=== PATIENT | female | born 1950 | race African-American/Black ===

== ENCOUNTER 2016-12-12 11:35 | Emergency (ER) | payer OTHER ==
[~2016-12-12] VITALS: Ht 165.1 cm; Wt 84.1 kg
[~2016-12-12 11:35] MED LIST: AMLO-512 PO; CARI350 PO; GABA-531 PO; METO50 PO; TRAM50TA4 PO
[2016-12-12] MEDS ORDERED: ASPI81 PO (12:10)
[2016-12-12] MEDS ORDERED: ATOR10TA84 PO (12:10)
[2016-12-12] MEDS ORDERED: OxyCODONE HCL/ACETAMINOPHEN 5-325 MG TABLET PO ONE (14:15)
[2016-12-12 14:34] VITALS: BP 112/65
== END 2016-12-12 14:47 | disposition home or self-care (01) ==
LOC: EMS 11:36
DX: S90.32XA Contusion of left foot, initial encounter (principal); J45.909 Unspecified asthma, uncomplicated; E78.00 Pure hypercholesterolemia, unspecified; I10 Essential (primary) hypertension; Z79.82 Long term (current) use of aspirin; Z88.0 Allergy status to penicillin; Z88.6 Allergy status to analgesic agent; W01.0XXA Fall on same level from slipping, tripping and stumbling without subsequent striking against object, initial encounter; Y93.89 Activity, other specified; Y92.89 Other specified places as the place of occurrence of the external cause; Y99.8 Other external cause status
CPT/HCPCS: 99284

== ENCOUNTER 2017-05-28 13:36 | Emergency (ER) | payer MEDICARE, OTHER ==
[~2017-05-28] VITALS: Ht 165.1 cm; Wt 83.5 kg
[~2017-05-28 13:36] MED LIST changes: +ASPI81 PO; +ATOR10TA84 PO; -CARI350 PO; -GABA-531 PO
[2017-05-28 15:43] VITALS: BP 128/74
[2017-05-28] MEDS ORDERED: IBUPROFEN 600 MG TABLET PO ONE (15:45)
[2017-05-28] MEDS ORDERED: TraMADol HCL 50 MG TABLET PO ONE (15:45)
[2017-05-28] MEDS ORDERED: PERTUSS(ACELL),DIPH,TET VAC/PF 0.5 ML VIAL IM ONE (15:45)
== END 2017-05-28 16:16 | disposition home or self-care (01) ==
LOC: EMS 13:37
DX: S81.011A Laceration without foreign body, right knee, initial encounter (principal); J45.909 Unspecified asthma, uncomplicated; E78.00 Pure hypercholesterolemia, unspecified; I10 Essential (primary) hypertension; Z88.0 Allergy status to penicillin; Z88.6 Allergy status to analgesic agent; W01.0XXA Fall on same level from slipping, tripping and stumbling without subsequent striking against object, initial encounter; Y93.89 Activity, other specified; Y92.89 Other specified places as the place of occurrence of the external cause; Y99.8 Other external cause status
CPT/HCPCS: 29530; 90471; 90715; 99284

== ENCOUNTER 2022-09-21 11:59 | Emergency (ER) | payer MEDICARE, OTHER ==
[~2022-09-21] VITALS: Ht 165.1 cm; Wt 72.7 kg
[~2022-09-21 11:59] MED LIST changes: +AMLO-258 PO; -AMLO-512 PO; +ASPI-1450 PO; -ASPI81 PO; +ATOR10TA PO; -ATOR10TA84 PO; +TRAM-559 PO; -TRAM50TA4 PO
[2022-09-21] MEDS ORDERED: ALBU8HFA IH (12:09)
[2022-09-21] MEDS ORDERED: METO-391 PO (12:09)
[2022-09-21] MEDS ORDERED: TraMADol HCL 50 MG TABLET PO ONE (12:45)
[2022-09-21] MEDS ORDERED: GABA-1181 PO (14:56)
[2022-09-21 15:14] VITALS: BP 127/72
== END 2022-09-21 15:14 | disposition home or self-care (01) ==
LOC: EMS 12:11
DX: M25.561 Pain in right knee (principal); J45.909 Unspecified asthma, uncomplicated; E78.00 Pure hypercholesterolemia, unspecified; I10 Essential (primary) hypertension; M40.50 Lordosis, unspecified, site unspecified; Z88.0 Allergy status to penicillin; Z98.51 Tubal ligation status; Z88.6 Allergy status to analgesic agent
CPT/HCPCS: 99283

== ENCOUNTER 2024-06-14 11:04 | Emergency (ER) | payer MEDICARE, OTHER ==
[~2024-06-14] VITALS: Ht 165.1 cm; Wt 82.7 kg
[~2024-06-14 11:04] MED LIST changes: +ALBU18HF12 IH; +GABA-1181 PO; +METO-391 PO; -METO50 PO; -TRAM-559 PO; +TRAM50TA5 PO
[2024-06-14] MEDS ORDERED: ATOR10TA69 PO ×2 (11:07→12:15)
[2024-06-14] MEDS ORDERED: LISI5TAB21 PO ×2 (11:07→12:15)
[2024-06-14] MEDS ORDERED: AMLO10TA55 PO ×2 (11:07→12:15)
[2024-06-14 11:08] VITALS: BP 102/60; PULSE 95; RESP 16; TEMP 98.4; O2SAT 98
[2024-06-14] MEDS ORDERED: METO-391 PO (12:15)
== END 2024-06-14 12:22 | disposition home or self-care (01) ==
LOC: EMS 11:04
DX: I10 Essential (primary) hypertension (principal); E78.00 Pure hypercholesterolemia, unspecified; J45.909 Unspecified asthma, uncomplicated; Z98.51 Tubal ligation status; Z88.0 Allergy status to penicillin
CPT/HCPCS: 99283; Z7502

== ENCOUNTER → 2024-08-20 | Emergency (ER) | payer MEDICARE, OTHER ==
[~2024-08-20] VITALS: Ht 165.1 cm; Wt 72.0 kg
[~2024-08-20] MED LIST changes: -AMLO-258 PO; +AMLO10TA55 PO; -ATOR10TA PO; +ATOR10TA69 PO; -GABA-1181 PO; +LISI5TAB21 PO
[2024-08-20 11:18] VITALS: BP 147/68; PULSE 82; RESP 18; TEMP 98.9; O2SAT 97
[2024-08-20] MEDS: TraMADol HCL 50 MG TABLET PO ONE (12:21)
== END | disposition still patient (30) ==
LOC: EMS 11:12
DX: J06.9 Acute upper respiratory infection, unspecified (principal); J45.909 Unspecified asthma, uncomplicated; E78.00 Pure hypercholesterolemia, unspecified; I10 Essential (primary) hypertension; G89.29 Other chronic pain; Z98.51 Tubal ligation status; Z88.6 Allergy status to analgesic agent; Z88.0 Allergy status to penicillin; Z79.82 Long term (current) use of aspirin
CPT/HCPCS: 99283

== ENCOUNTER 2024-09-20 14:58 | Inpatient (IN) | payer MEDICARE, OTHER ==
[~2024-09-20] VITALS: Ht 162.6 cm; Wt 88.2 kg
[2024-09-20] MEDS ORDERED: 0.9% SODIUM CHLORIDE 10 ML SYRINGE IVP PRN (15:15)
[2024-09-20] MEDS: SODIUM CHLORIDE 0.9% 2,100 ML IV ONE (15:33)
[2024-09-20] MEDS: CefTRIAXone 1 GM/DEXTROSE 50 ML IV ONE (15:38)
[2024-09-20 16:20] LABS: BASOPHILS % (AUTO) 0.3 % (0.0-2.0); EOSINOPHILS % (AUTO) 0.1 % (1.0-6.0); HEMATOCRIT 35.8 % (36-46); HEMOGLOBIN 11.5 g/dL (12.0-16.0); LYMPHOCYTES # (AUTO) 0.7 K/uL (1.0-4.8); LYMPHOCYTES % (AUTO) 7.5 % (22.0-44.0); MEAN CORPUSCULAR HEMOGLOBIN 31.3 pg (26.0-34.0); MEAN CORPUSCULAR HGB CONC 32.1 G/dL (31.0-37.0); MEAN CORPUSCULAR VOLUME 98 fL (80-100); MONOCYTES # (AUTO) 0.6 K/uL (0.1-1.0); MONOCYTES % (AUTO) 6.3 % (2.0-9.0); NEUTROPHILS # (AUTO) 8.2 K/uL (1.8-7.7); PLATELET COUNT (AUTO) 109 K/uL (150-450); RED BLOOD CELL COUNT(AUTO) 3.67 MIL/uL (4.00-5.20); RED CELL DISTRIBUTION WIDTH 15.4 % (11.5-14.5); WHITE BLOOD COUNT (AUTO) 9.6 K/uL (4.5-11.0)
[2024-09-20 16:21] LABS: COVID AG,FIA SOURCE NASAL SWAB
[2024-09-20 16:24] LABS: APPEARANCE,URINE CLEAR (CLEAR); COLOR,URINE YELLOW (YELLOW); GLUCOSE, URINE (UA) NEGATIVE (NEGATIVE); LEUKOCYTE ESTERASE ,URINE NEGATIVE (NEGATIVE); NITRATE,URINE NEGATIVE (NEGATIVE); OCCULT BLOOD,URINE NEGATIVE (NEGATIVE); PROTEIN,URINE 30-70 mg/dL (NEGATIVE); SPECIFIC GRAVITIY, URINE 1.025 (1.003-1.030)
[2024-09-20 16:27] LABS: PROTHROMBIN TIME 14.5 SEC (9.4-11.6)
[2024-09-20 16:28] LABS: B-TYPE NATRIURETIC PEPTIDE 254 pg/mL (0-100)
[2024-09-20 16:30] LABS: BILIRUBIN,URINE SMALL (NEGATIVE)
[2024-09-20 16:31] LABS: NEUTROPHILS % (AUTO) 85.8 % (40.0-70.0)
[2024-09-20 16:42] LABS: LACTIC ACID 6.3 mmol/L (0.4-2.0)
[2024-09-20] MEDS: DIGOXIN 250 MCG/ML 2 ML AMP IVP ONE (16:43)
[2024-09-20] MEDS: ONDANSETRON HCL 4 MG/2 ML VIAL IVP ONE (16:43)
[2024-09-20] MEDS: SODIUM CHLORIDE 0.9% 1,000 ML IV ONE ×2 (16:43→18:03)
[2024-09-20 16:44] LABS: SARS-COV2 (COVID) ANTIGEN,FIA Negative (Negative)
[2024-09-20 16:45] LABS: INFLUENZA TYPE A NEGATIVE FOR TYPE A (NEGATIVE); INFLUENZA TYPE B NEGATIVE FOR TYPE B (NEGATIVE)
[2024-09-20] MEDS: CALCIUM GLUCONATE 100 MG/ML 10 ML IVP ONE (16:46)
[2024-09-20 16:52] LABS: TROPONIN I-HIGH SENSITIVITY 222 ng/L (<51)
[2024-09-20 16:58] LABS: BACTERIA,URINE Few /HPF (None Seen); HYALINE CASTS, URINE 0-2 /LPF (None Seen); MUCUS,URINE Few LPF (None Seen); RBC,URINE 0-2 /HPF (0-2); SQUAMOUS EPITHELIAL CELL,UR Rare /LPF (None Seen); WBC,URINE 0-2 /HPF (0-5)
[2024-09-20 16:59] LABS: CALCIUM, TOTAL 7.8 mg/dL (8.8-10.5); CREATININE 1.62 mg/dL (0.60-1.30)
[2024-09-20] MEDS: NOREPINEPHRINE 8 MG/0.9 % NACL 250 ML IV PRN (17:05)
[2024-09-20] MEDS: DILTIAZEM HCL 5 MG/ML 5 ML VIAL IVP ONE ×2 (17:07→18:01)
[2024-09-20 17:20] LABS: ALANINE AMINOTRANSFERASE 23 U/L (12-78); ALBUMIN 1.8 g/dL (3.4-5.0); ALKALINE PHOSPHATASE 186 U/L (46-116); ASPARTATE AMINOTRANSFERASE 45 U/L (15-37); BILIRUBIN,TOTAL 0.8 mg/dL (0.1-1.0)
[2024-09-20] MEDS ORDERED: AMIODARONE HCL 150 MG in DEXTROSE 5%-WATER 97 ML IV ONE (17:45)
[2024-09-20] MEDS ORDERED: BISACODYL 10 MG RECTAL RECTAL SUPPOSITORY PR PRN (17:45)
[2024-09-20] MEDS ORDERED: NOREPINEPHRINE 8 MG/0.9 % NACL 250 ML IV PRN (17:45)
[2024-09-20] MEDS ORDERED: AMIODARONE HCL 50 MG/ML 3 ML VIAL IV ONE (17:45)
[2024-09-20] MEDS ORDERED: MAGNESIUM HYDROXIDE SUSPENSION 30 ML UDCUP PO PRN (17:45)
[2024-09-20] MEDS: AMIODARONE HCL 150 MG in DEXTROSE 5%-WATER 97 ML IV ONE (18:09)
[2024-09-20 18:25] LABS: TROPONIN I-HIGH SENSITIVITY 245 ng/L (<51)
[2024-09-20] MEDS: AMIODARONE HCL 360 MG in DEXTROSE 5%-WATER 242.8 ML IV ONE (18:35)
[2024-09-20 20:45] VITALS: BP 117/42; PULSE 126; RESP 18; TEMP 99.2; O2SAT 95
[2024-09-20] MEDS: DOCUSATE SODIUM 100 MG CAPSULE PO SCH (21:00)
[2024-09-20] MEDS: ACETAMINOPHEN 325 MG TABLET PO PRN (21:22)
[2024-09-20] MEDS: POTASSIUM CHLORIDE 10% 40 MEQ/30 ML LIQUID UDCUP PO ONE (22:19)
[2024-09-21] VITALS: BP 113/74; PULSE 127; RESP 14; TEMP 98.2; O2SAT 97
[2024-09-21] MEDS: HEPARIN SODIUM,PORCINE 5,000 UNITS/ML VIAL SQ SCH (00:21)
[2024-09-21] MEDS: AMIODARONE HCL 540 MG in DEXTROSE 5%-WATER 239.2 ML IV ONE (00:22)
[2024-09-21 04:00] VITALS: BP 104/76; PULSE 130; RESP 12; TEMP 98.5; O2SAT 97
[2024-09-21] MEDS: PHENYLEPHRINE 200 MG/D5%-WATER 250 ML IV PRN (05:31)
[2024-09-21] MEDS: PANTOPRAZOLE SODIUM 40 MG DR TABLET PO SCH (07:59)
[2024-09-21 08:00] VITALS: BP 97/76; PULSE 116; PULSE 135; RESP 27; TEMP 99.2; O2SAT 97
[2024-09-21 09:21] LABS: BASOPHILS % (AUTO) 0.3 % (0.0-2.0); EOSINOPHILS % (AUTO) 0 % (1.0-6.0); HEMATOCRIT 38.7 % (36-46); HEMOGLOBIN 12.6 g/dL (12.0-16.0); LYMPHOCYTES # (AUTO) 0.7 K/uL (1.0-4.8); LYMPHOCYTES % (AUTO) 3.5 % (22.0-44.0); MEAN CORPUSCULAR HGB CONC 32.6 G/dL (31.0-37.0); MEAN CORPUSCULAR VOLUME 98 fL (80-100); MONOCYTES % (AUTO) 5.3 % (2.0-9.0); NEUTROPHILS # (AUTO) 17.3 K/uL (1.8-7.7); PLATELET COUNT (AUTO) 117 K/uL (150-450); RED BLOOD CELL COUNT(AUTO) 3.95 MIL/uL (4.00-5.20); RED CELL DISTRIBUTION WIDTH 14.9 % (11.5-14.5)
[2024-09-21 09:23] LABS: NEUTROPHILS % (AUTO) 90.9 % (40.0-70.0)
[2024-09-21 09:27] LABS: CALCIUM, TOTAL 8.2 mg/dL (8.8-10.5); CREATININE 1.24 mg/dL (0.60-1.30)
[2024-09-21 09:38] LABS: TROPONIN I-HIGH SENSITIVITY 572 ng/L (<51)
[2024-09-21 09:41] LABS: LACTIC ACID 2.8 mmol/L (0.4-2.0)
[2024-09-21 09:42] LABS: B-TYPE NATRIURETIC PEPTIDE 1000 pg/mL (0-100)
[2024-09-21] MEDS ORDERED: HEPARIN SODIUM,PORCINE 5,000 UNITS/ML VIAL IVP PRN ×2 (11:45)
[2024-09-21 12:00] VITALS: BP 129/78; PULSE 118; PULSE 119; RESP 26; TEMP 98.4; O2SAT 100
[2024-09-21] MEDS: CefTRIAXone 1 GM/DEXTROSE 50 ML IV SCH (12:00)
[2024-09-21] MEDS ORDERED: SODIUM CHLORIDE 0.9% 250 ML IV ONE (12:02)
[2024-09-21 12:05] LABS: BASOPHILS % (AUTO) 0.6 % (0.0-2.0); EOSINOPHILS % (AUTO) 0 % (1.0-6.0); HEMATOCRIT 39.9 % (36-46); HEMOGLOBIN 12.6 g/dL (12.0-16.0); LYMPHOCYTES # (AUTO) 0.7 K/uL (1.0-4.8); LYMPHOCYTES % (AUTO) 3.7 % (22.0-44.0); MEAN CORPUSCULAR HGB CONC 31.5 G/dL (31.0-37.0); MEAN CORPUSCULAR VOLUME 98 fL (80-100); MONOCYTES # (AUTO) 1.1 K/uL (0.1-1.0); MONOCYTES % (AUTO) 5.9 % (2.0-9.0); NEUTROPHILS # (AUTO) 17.2 K/uL (1.8-7.7); PLATELET COUNT (AUTO) 109 K/uL (150-450); RED BLOOD CELL COUNT(AUTO) 4.05 MIL/uL (4.00-5.20); RED CELL DISTRIBUTION WIDTH 15.5 % (11.5-14.5); WHITE BLOOD COUNT (AUTO) 19.2 K/uL (4.5-11.0)
[2024-09-21 12:09] LABS: NEUTROPHILS % (AUTO) 89.8 % (40.0-70.0)
[2024-09-21] MEDS: HEPARIN SODIUM 25000 UNITS/D5W 250 ML IV PRN (13:16)
[2024-09-21] MEDS: ONDANSETRON HCL 4 MG/2 ML VIAL IVP PRN (13:33)
[2024-09-21] MEDS: MORPHINE SULFATE 2 MG/ML SYRINGE IVP PRN (13:33)
[2024-09-21] MEDS: SODIUM CHLORIDE 0.9% 1,000 ML IV ONE (15:22)
[2024-09-21 16:00] VITALS: BP 96/53; PULSE 119; PULSE 126; RESP 26; TEMP 97.9; O2SAT 100
[2024-09-21] MEDS: AZITHROMYCIN 500 MG/NS 250 ML IV SCH (16:16)
[2024-09-21] MEDS: AMIODARONE HCL 750 MG in DEXTROSE 5%-WATER 485 ML IV SCH (19:51)
[2024-09-21 20:00] VITALS: BP 93/67; PULSE 128; PULSE 129; RESP 19; TEMP 97.6; O2SAT 97
[2024-09-21] MEDS: NYSTATIN 500,000 UNITS/5 ML SUSPENSION UDCUP PO SCH (21:11)
[2024-09-22] VITALS: BP 105/80; PULSE 122; PULSE 147; RESP 24; TEMP 97.8; O2SAT 96
[2024-09-22] MEDS: HYDROCODONE/ACETAMINOPHEN 5-325 MG TABLET PO PRN (01:27)
[2024-09-22 04:00] VITALS: BP 140/70; PULSE 90; PULSE 96; RESP 22; TEMP 98; O2SAT 95
[2024-09-22 06:06] LABS: BASOPHILS % (AUTO) 0.1 % (0.0-2.0); EOSINOPHILS % (AUTO) 0.4 % (1.0-6.0); HEMATOCRIT 39.8 % (36-46); HEMOGLOBIN 13.1 g/dL (12.0-16.0); LYMPHOCYTES # (AUTO) 0.7 K/uL (1.0-4.8); LYMPHOCYTES % (AUTO) 4.4 % (22.0-44.0); MEAN CORPUSCULAR HEMOGLOBIN 31.9 pg (26.0-34.0); MEAN CORPUSCULAR HGB CONC 32.8 G/dL (31.0-37.0); MEAN CORPUSCULAR VOLUME 97 fL (80-100); MONOCYTES % (AUTO) 6.1 % (2.0-9.0); NEUTROPHILS # (AUTO) 14.5 K/uL (1.8-7.7); PLATELET COUNT (AUTO) 127 K/uL (150-450); RED BLOOD CELL COUNT(AUTO) 4.09 MIL/uL (4.00-5.20); RED CELL DISTRIBUTION WIDTH 15.8 % (11.5-14.5); WHITE BLOOD COUNT (AUTO) 16.3 K/uL (4.5-11.0)
[2024-09-22 06:31] LABS: ANION GAP 13 mmol/L (8-16); CARBON DIOXIDE 21 mmol/L (22-29); CHLORIDE 107 mmol/L (98-107); CREATININE 1.07 mg/dL (0.60-1.30); GLOMERULAR FILTR. RATE CALC > 60 mL/min (>60); GLUCOSE,RANDOM 180 mg/dL (70-110); POTASSIUM 3.3 mmol/L (3.5-5.1); SODIUM SERUM 141 mmol/L (136-145); THYROID STIMULATING HORMONE 0.97 uIU/mL (0.36-3.74); UREA NITROGEN, BLOOD 21 mg/dL (7-18)
[2024-09-22 08:00] VITALS: BP 103/76; PULSE 150; RESP 16; TEMP 97.6; O2SAT 95
[2024-09-22 08:37] LABS: TROPONIN I-HIGH SENSITIVITY 285 ng/L (<51)
[2024-09-22] MEDS: ASPIRIN 81 MG DR TABLET PO SCH (08:42)
[2024-09-22] MEDS: DIGOXIN 250 MCG/ML 2 ML AMP IVP ONE ×2 (08:42→13:56)
[2024-09-22] MEDS ORDERED: PERFLUTREN PROTEIN-A MICROSPHERES 0.22 MG/ML 3 ML VIAL IVP ONE (10:30)
[2024-09-22 11:09] LABS: ABG BASE EXCESS -7.2 mmol/L (-2.0-3.0); ABG CARBOXYHEMOGLOBIN 0.3 % (0.5-1.5); ABG HCO3 20.1 mmol/L (21.0-28.0); ABG METHEMOGLOBIN 0.2 % (0.0-1.5); ABG OXYGEN CONTENT 16.8 mL/dL (15.0-23.0); ABG OXYGEN SATURATION 98.5 % (94.0-98.0); ABG PCO2 22 mmHg (32.0-45.0); ABG PH 7.491 (7.350-7.450); ABG TOTAL HEMOGLOBIN 12.1 G/dL (12.0-16.0); ALLEN TEST, BLOOD GAS Positive; PO2, ARTERIAL BG 114.2 mmHg (83.0-108.0); SITE, BLOOD GAS LFT RADIAL; SOURCE, BLOOD GAS ARTERIAL; TEMPERATURE, FAHRENHEIT, BG 98.6 FAHREN (96.0-98.6)
[2024-09-22 11:10] LABS: O2 DEVICE,BLOOD GAS CANNULA (ROOM AIR)
[2024-09-22] MEDS: SODIUM CHLORIDE 0.9% 1,000 ML IV ONE (11:16)
[2024-09-22 12:00] VITALS: BP 134/58; PULSE 95; RESP 20; TEMP 99.1; O2SAT 96
[2024-09-22] MEDS ORDERED: TRAM50TA5 PO (13:29)
[2024-09-22] MEDS: POTASSIUM CHLORIDE 20 MEQ ER TABLET PO PRN (13:56)
[2024-09-22] MEDS: PERFLUTREN PROTEIN-A MICROSPHERES 0.22 MG/ML 3 ML VIAL IVP ONE (14:50)
[2024-09-22] MEDS: AMIODARONE HCL 200 MG TABLET PO SCH (15:52)
[2024-09-22] MEDS: MIDODRINE HCL 5 MG TABLET PO SCH (15:52)
[2024-09-22] MEDS: MetroNIDAZOLE 500 MG TABLET PO SCH (15:59)
[2024-09-22 16:00] VITALS: BP 126/63; PULSE 101; RESP 18; TEMP 98; O2SAT 98
[2024-09-22 20:00] VITALS: BP 128/83; PULSE 95; RESP 21; TEMP 99.7; O2SAT 99
[2024-09-22 21:01] LABS: C.DIFF GDH ANTIGEN, Stool Positive (Negative)
[2024-09-22 21:02] LABS: C.DIFF TOXINS A&B, Stool Negative (Negative)
[2024-09-23] VITALS (8 sets, daily range): BP systolic 116–137; BP diastolic 65–84; PULSE 90–115; RESP 19–30; TEMP 98.5–99.8; O2SAT 96–100
[2024-09-23 02:19] LABS: BASOPHILS % (AUTO) 0.3 % (0.0-2.0); EOSINOPHILS % (AUTO) 0.1 % (1.0-6.0); HEMATOCRIT 37.2 % (36-46); HEMOGLOBIN 11.8 g/dL (12.0-16.0); LYMPHOCYTES # (AUTO) 1.1 K/uL (1.0-4.8); LYMPHOCYTES % (AUTO) 8.3 % (22.0-44.0); MEAN CORPUSCULAR HEMOGLOBIN 31.3 pg (26.0-34.0); MEAN CORPUSCULAR HGB CONC 31.7 G/dL (31.0-37.0); MEAN CORPUSCULAR VOLUME 99 fL (80-100); MONOCYTES # (AUTO) 0.7 K/uL (0.1-1.0); MONOCYTES % (AUTO) 5.6 % (2.0-9.0); NEUTROPHILS # (AUTO) 11.3 K/uL (1.8-7.7); RED BLOOD CELL COUNT(AUTO) 3.77 MIL/uL (4.00-5.20); RED CELL DISTRIBUTION WIDTH 15.7 % (11.5-14.5); WHITE BLOOD COUNT (AUTO) 13.2 K/uL (4.5-11.0)
[2024-09-23 02:22] LABS: NEUTROPHILS % (AUTO) 85.7 % (40.0-70.0)
[2024-09-23 02:24] LABS: PLATELET COUNT (AUTO) 100 K/uL (150-450)
[2024-09-23 02:27] LABS: ANION GAP 11 mmol/L (8-16); CALCIUM, TOTAL 7.4 mg/dL (8.8-10.5); CARBON DIOXIDE 18 mmol/L (22-29); CHLORIDE 108 mmol/L (98-107); CREATININE 1.03 mg/dL (0.60-1.30); GLOMERULAR FILTR. RATE CALC > 60 mL/min (>60); GLUCOSE,RANDOM 150 mg/dL (70-110); POTASSIUM 3.7 mmol/L (3.5-5.1); SODIUM SERUM 137 mmol/L (136-145); UREA NITROGEN, BLOOD 15 mg/dL (7-18)
[2024-09-23 04:00] LABS: DIGOXIN 1.33 ng/mL (0.90-2.00)
[2024-09-23] MEDS ORDERED: MAGNESIUM OXIDE 400 MG TABLET PO PRN (08:45)
[2024-09-23] MEDS ORDERED: MAGNESIUM SULFATE 4 GM/WATER 100 ML IV PRN (08:45)
[2024-09-23] MEDS: APIXABAN 5 MG TABLET PO SCH (08:54)
[2024-09-23] MEDS ORDERED: IOHEXOL 9 MG/ML 500 ML BOTTLE ONE (11:00)
[2024-09-23] MEDS: MAGNESIUM SULFATE 2 GM/WATER 50 ML IV PRN (11:36)
[2024-09-23] MEDS ORDERED: IOHEXOL 350 MG/ML 100 ML VIAL ONE (16:01)
[2024-09-23] MEDS ORDERED: SODIUM CHLORIDE 0.9% 100 ML ONE (16:01)
[2024-09-23] MEDS: SODIUM CHLORIDE 0.9% 1,000 ML IV ONE (17:53)
[2024-09-24] VITALS (7 sets, daily range): BP systolic 116–145; BP diastolic 63–80; PULSE 98–126; RESP 17–30; TEMP 99.1–99.9; O2SAT 93–99
[2024-09-24 05:54] LABS: BASOPHILS % (AUTO) 0.3 % (0.0-2.0); EOSINOPHILS % (AUTO) 0.3 % (1.0-6.0); HEMATOCRIT 35.2 % (36-46); HEMOGLOBIN 11.7 g/dL (12.0-16.0); LYMPHOCYTES % (AUTO) 9.7 % (22.0-44.0); MEAN CORPUSCULAR HEMOGLOBIN 31.9 pg (26.0-34.0); MEAN CORPUSCULAR HGB CONC 33.1 G/dL (31.0-37.0); MEAN CORPUSCULAR VOLUME 97 fL (80-100); MONOCYTES # (AUTO) 0.8 K/uL (0.1-1.0); MONOCYTES % (AUTO) 7.2 % (2.0-9.0); NEUTROPHILS # (AUTO) 8.7 K/uL (1.8-7.7); NEUTROPHILS % (AUTO) 82.5 % (40.0-70.0); PLATELET COUNT (AUTO) 106 K/uL (150-450); RED BLOOD CELL COUNT(AUTO) 3.65 MIL/uL (4.00-5.20); RED CELL DISTRIBUTION WIDTH 15.4 % (11.5-14.5); WHITE BLOOD COUNT (AUTO) 10.6 K/uL (4.5-11.0)
[2024-09-24 06:16] LABS: ANION GAP 8 mmol/L (8-16); CALCIUM, TOTAL 7.4 mg/dL (8.8-10.5); CARBON DIOXIDE 24 mmol/L (22-29); CHLORIDE 107 mmol/L (98-107); CREATININE 0.85 mg/dL (0.60-1.30); GLOMERULAR FILTR. RATE CALC > 60 mL/min (>60); GLUCOSE,RANDOM 107 mg/dL (70-110); POTASSIUM 3.5 mmol/L (3.5-5.1); SODIUM SERUM 139 mmol/L (136-145); UREA NITROGEN, BLOOD 9 mg/dL (7-18)
[2024-09-24] MEDS ORDERED: POTASSIUM CHLORIDE 10% 40 MEQ/30 ML LIQUID UDCUP PO PRN (08:45)
[2024-09-24] MEDS: METOPROLOL TARTRATE 25 MG TABLET PO SCH (08:57)
[2024-09-24] MEDS: VANCOMYCIN HCL 125 MG/2.5 ML SOLUTION ORAL.SYG PO SCH (09:55)
[2024-09-24] MEDS: POTASSIUM CHLORIDE 10% 40 MEQ/30 ML LIQUID UDCUP PO PRN (09:56)
[2024-09-24] MEDS: DIGOXIN 125 MCG TABLET PO SCH (10:39)
[2024-09-24 11:21] LABS: SPECIMENTYPE,BODY FLUID THORACENTESIS
[2024-09-24 15:24] LABS: APPEARANCE,SPUN,BODY FLUID CLEAR (CLEAR); APPEARANCE,UNSPUN,BODY FLUID HAZY (CLEAR); BASOPHILS,BODY FLUID 0 %; COLOR,BODY FLUID YELLOW (LT YELLOW); EOSINOPHILS,BF (ANAL) 0 %; LYMPHOCYTES,BODY FLUID 18 %; MONOCYTES,BODY FLUID 0 %; NEUTROPHILS,BODY FLUID 2 %; TOTAL VOLUME,BODY FLUID 950 mL; WBC, BODY FLUID 242 /cu. mm.
[2024-09-24 15:25] LABS: OTHER CELLS,BODY FLUID 80; PH, BODY FLUID 8
[2024-09-24] MEDS: MIDODRINE HCL 5 MG TABLET PO SCH (15:52)
[2024-09-24] MEDS ORDERED: SODIUM CHLORIDE 0.9% 500 ML IV ONE (16:08)
[2024-09-24 17:26] LABS: PHOSPHORUS 1.3 mg/dL (2.5-4.9)
[2024-09-24] MEDS: POTASSIUM PHOS,M-BASIC-D-BASIC 30 MMOL in DEXTROSE 5%-WATER 250 ML IV ONE (18:52)
[2024-09-24] MEDS: ZOLPIDEM TARTRATE 5 MG TABLET PO PRN (20:32)
[2024-09-25] VITALS (8 sets, daily range): BP systolic 100–140; BP diastolic 52–104; PULSE 81–104; RESP 20–29; TEMP 99.5–100.7; O2SAT 93–100
[2024-09-25] MEDS: ALBUTEROL SULFATE 2.5 MG/0.5 ML NEB SOLUTION NEB PRN (04:20)
[2024-09-25 06:58] LABS: BASOPHILS % (AUTO) 0.1 % (0.0-2.0); EOSINOPHILS % (AUTO) 0.1 % (1.0-6.0); HEMATOCRIT 39.7 % (36-46); HEMOGLOBIN 12.4 g/dL (12.0-16.0); LYMPHOCYTES # (AUTO) 0.6 K/uL (1.0-4.8); LYMPHOCYTES % (AUTO) 4.8 % (22.0-44.0); MEAN CORPUSCULAR HGB CONC 31.3 G/dL (31.0-37.0); MEAN CORPUSCULAR VOLUME 102 fL (80-100); MONOCYTES % (AUTO) 8.1 % (2.0-9.0); NEUTROPHILS # (AUTO) 11.2 K/uL (1.8-7.7); PLATELET COUNT (AUTO) 86 K/uL (150-450); RED BLOOD CELL COUNT(AUTO) 3.89 MIL/uL (4.00-5.20); RED CELL DISTRIBUTION WIDTH 16.9 % (11.5-14.5); WHITE BLOOD COUNT (AUTO) 12.9 K/uL (4.5-11.0)
[2024-09-25 07:08] LABS: ANION GAP 7 mmol/L (8-16); CALCIUM, TOTAL 7.4 mg/dL (8.8-10.5); CARBON DIOXIDE 18 mmol/L (22-29); CHLORIDE 109 mmol/L (98-107); CREATININE 0.81 mg/dL (0.60-1.30); GLOMERULAR FILTR. RATE CALC > 60 mL/min (>60); GLUCOSE,RANDOM 145 mg/dL (70-110); POTASSIUM 4.1 mmol/L (3.5-5.1); SODIUM SERUM 134 mmol/L (136-145); UREA NITROGEN, BLOOD 9 mg/dL (7-18)
[2024-09-25 07:11] LABS: PHOSPHORUS 2.3 mg/dL (2.5-4.9)
[2024-09-25] MEDS ORDERED: METOPROLOL TARTRATE 25 MG TABLET PO SCH (09:00)
[2024-09-25 09:12] LABS: NEUTROPHILS % (AUTO) 86.9 % (40.0-70.0); RBC MORPHOLOGY COMMENT ABNORMAL RBC MORPH
[2024-09-25 12:06] LABS: TOTAL PROTEIN,BODY FLUID,REF 2.9 g/dL
[2024-09-25] MEDS: METOPROLOL TARTRATE 5 MG/5 ML VIAL IVP SCH (12:27)
[2024-09-26] VITALS: BP 127/80; PULSE 97; RESP 27; TEMP 99.6; O2SAT 98
[2024-09-26 04:00] VITALS: BP 122/86; PULSE 98; RESP 33; TEMP 99.7; O2SAT 95
[2024-09-26 07:12] LABS: BASOPHILS % (AUTO) 0.1 % (0.0-2.0); EOSINOPHILS % (AUTO) 0.2 % (1.0-6.0); HEMATOCRIT 32.8 % (36-46); HEMOGLOBIN 10.8 g/dL (12.0-16.0); LYMPHOCYTES # (AUTO) 0.8 K/uL (1.0-4.8); LYMPHOCYTES % (AUTO) 6.9 % (22.0-44.0); MEAN CORPUSCULAR HEMOGLOBIN 32.2 pg (26.0-34.0); MEAN CORPUSCULAR HGB CONC 32.9 G/dL (31.0-37.0); MEAN CORPUSCULAR VOLUME 98 fL (80-100); MONOCYTES % (AUTO) 8.3 % (2.0-9.0); NEUTROPHILS % (AUTO) 84.5 % (40.0-70.0); PLATELET COUNT (AUTO) 95 K/uL (150-450); RED BLOOD CELL COUNT(AUTO) 3.36 MIL/uL (4.00-5.20); RED CELL DISTRIBUTION WIDTH 15.8 % (11.5-14.5); WHITE BLOOD COUNT (AUTO) 11.9 K/uL (4.5-11.0)
[2024-09-26 07:21] LABS: ANION GAP 10 mmol/L (8-16); CARBON DIOXIDE 23 mmol/L (22-29); CHLORIDE 109 mmol/L (98-107); CREATININE 0.75 mg/dL (0.60-1.30); GLOMERULAR FILTR. RATE CALC > 60 mL/min (>60); GLUCOSE,RANDOM 115 mg/dL (70-110); PHOSPHORUS 2.1 mg/dL (2.5-4.9); POTASSIUM 4.3 mmol/L (3.5-5.1); SODIUM SERUM 142 mmol/L (136-145); UREA NITROGEN, BLOOD 10 mg/dL (7-18)
[2024-09-26 08:53] VITALS: BP 119/64; PULSE 95; RESP 18; TEMP 97.5; O2SAT 100
[2024-09-26] MEDS: APIXABAN 5 MG TABLET PO SCH (09:28)
[2024-09-26 11:22] VITALS: BP 136/93; PULSE 109; RESP 18; TEMP 98.3; O2SAT 100
[2024-09-26] MEDS ORDERED: SODIUM CHLORIDE 0.9% 500 ML IV ONE (13:08)
[2024-09-26 15:32] VITALS: BP 132/88; PULSE 110; RESP 19; TEMP 98; O2SAT 98
[2024-09-26 20:06] VITALS: BP 143/88; PULSE 118; RESP 19; TEMP 98.1; O2SAT 96
[2024-09-26] MEDS: METOPROLOL TARTRATE 25 MG TABLET PO SCH (20:31)
[2024-09-27] VITALS: BP 143/77; PULSE 101; RESP 18; TEMP 97.7; O2SAT 95
[2024-09-27 03:58] VITALS: BP 143/82; PULSE 116; RESP 19; TEMP 98.3; O2SAT 96
[2024-09-27 08:00] VITALS: BP 144/84; PULSE 104; RESP 18; TEMP 98.6; O2SAT 98
[2024-09-27] MEDS: METOPROLOL TARTRATE 50 MG TABLET PO SCH (09:24)
[2024-09-27 11:59] VITALS: BP 125/70; PULSE 86; RESP 18; TEMP 98.7; O2SAT 91
[2024-09-27 16:59] VITALS: BP 148/56; PULSE 60; RESP 18; TEMP 98.2; O2SAT 95
[2024-09-27 20:57] VITALS: BP 141/69; PULSE 111; RESP 19; TEMP 97.8; O2SAT 96
[2024-09-28] VITALS: BP 117/50; PULSE 96; RESP 19; TEMP 97.4; O2SAT 96
[2024-09-28 06:51] VITALS: BP 156/64; PULSE 110; RESP 19; TEMP 97.7; O2SAT 94
[2024-09-28 07:35] VITALS: BP 132/70; PULSE 103; RESP 18; TEMP 97.5
[2024-09-28 11:41] VITALS: BP 121/63; PULSE 86; RESP 16; TEMP 97.7; O2SAT 97
[2024-09-28 15:30] VITALS: BP 131/92; PULSE 98; RESP 18; TEMP 97.6; O2SAT 95
[2024-09-28 20:44] VITALS: BP 141/66; PULSE 106; RESP 20; TEMP 98.4; O2SAT 95
[2024-09-29 00:58] VITALS: BP 119/56; PULSE 90; RESP 30; TEMP 98.9; O2SAT 95
[2024-09-29 04:48] VITALS: BP 128/74; PULSE 105; RESP 23; TEMP 98.1; O2SAT 95
[2024-09-29 08:37] VITALS: BP 124/57; PULSE 104; RESP 20; TEMP 98.2; O2SAT 98
[2024-09-29 12:00] VITALS: BP 101/67; PULSE 113; RESP 22; TEMP 98; O2SAT 96
[2024-09-29 14:56] VITALS: BP 120/53; PULSE 89; RESP 20; TEMP 98.1; O2SAT 97
[2024-09-29 20:00] VITALS: BP 140/65; PULSE 103; RESP 20; TEMP 98.2; O2SAT 96
[2024-09-30] VITALS (10 sets, daily range): BP systolic 131–155; BP diastolic 45–86; PULSE 60–118; RESP 18–22; TEMP 97.6–99.7; O2SAT 91–99
[2024-09-30] MEDS: BENZONATATE 100 MG CAPSULE PO PRN (01:22)
[2024-09-30 09:47] LABS: BASOPHILS % (AUTO) 1.4 % (0.0-2.0); EOSINOPHILS % (AUTO) 0.1 % (1.0-6.0); HEMATOCRIT 29.8 % (36-46); HEMOGLOBIN 9.6 g/dL (12.0-16.0); LYMPHOCYTES # (AUTO) 0.7 K/uL (1.0-4.8); LYMPHOCYTES % (AUTO) 3.9 % (22.0-44.0); MEAN CORPUSCULAR HEMOGLOBIN 30.7 pg (26.0-34.0); MEAN CORPUSCULAR HGB CONC 32.1 G/dL (31.0-37.0); MEAN CORPUSCULAR VOLUME 96 fL (80-100); MONOCYTES # (AUTO) 0.7 K/uL (0.1-1.0); MONOCYTES % (AUTO) 3.9 % (2.0-9.0); NEUTROPHILS # (AUTO) 17.2 K/uL (1.8-7.7); PLATELET COUNT (AUTO) 148 K/uL (150-450); RED BLOOD CELL COUNT(AUTO) 3.11 MIL/uL (4.00-5.20); RED CELL DISTRIBUTION WIDTH 15.8 % (11.5-14.5); WHITE BLOOD COUNT (AUTO) 18.9 K/uL (4.5-11.0)
[2024-09-30 09:48] LABS: NEUTROPHILS % (AUTO) 90.7 % (40.0-70.0)
[2024-09-30 10:00] LABS: ALBUMIN 1.5 g/dL (3.4-5.0); ANION GAP 11 mmol/L (8-16); CALCIUM, TOTAL 8.1 mg/dL (8.8-10.5); CARBON DIOXIDE 23 mmol/L (22-29); CHLORIDE 106 mmol/L (98-107); CREATININE 0.84 mg/dL (0.60-1.30); GLOMERULAR FILTR. RATE CALC > 60 mL/min (>60); GLUCOSE,RANDOM 132 mg/dL (70-110); POTASSIUM 4.2 mmol/L (3.5-5.1); SODIUM SERUM 140 mmol/L (136-145); UREA NITROGEN, BLOOD 13 mg/dL (7-18)
[2024-10-01] VITALS (13 sets, daily range): BP systolic 100–153; BP diastolic 56–86; PULSE 70–114; RESP 18–26; TEMP 97.3–98.7; O2SAT 85–100
[2024-10-01] MEDS ORDERED: 0.9% SODIUM CHLORIDE 5 ML NEB SOLUTION NEB ONE ×3 (04:47→18:50)
[2024-10-01 12:48] LABS: BASOPHILS % (AUTO) 0.3 % (0.0-2.0); EOSINOPHILS % (AUTO) 0.1 % (1.0-6.0); HEMATOCRIT 29.3 % (36-46); HEMOGLOBIN 9.6 g/dL (12.0-16.0); LYMPHOCYTES # (AUTO) 1.1 K/uL (1.0-4.8); LYMPHOCYTES % (AUTO) 5.4 % (22.0-44.0); MEAN CORPUSCULAR HEMOGLOBIN 31.5 pg (26.0-34.0); MEAN CORPUSCULAR HGB CONC 32.7 G/dL (31.0-37.0); MEAN CORPUSCULAR VOLUME 97 fL (80-100); MONOCYTES # (AUTO) 0.8 K/uL (0.1-1.0); PLATELET COUNT (AUTO) 192 K/uL (150-450); RED BLOOD CELL COUNT(AUTO) 3.04 MIL/uL (4.00-5.20); RED CELL DISTRIBUTION WIDTH 15.7 % (11.5-14.5)
[2024-10-01 13:06] LABS: ALANINE AMINOTRANSFERASE 41 U/L (12-78); ALBUMIN 1.4 g/dL (3.4-5.0); ALKALINE PHOSPHATASE 363 U/L (46-116); ANION GAP 11 mmol/L (8-16); ASPARTATE AMINOTRANSFERASE 64 U/L (15-37); BILIRUBIN,TOTAL 0.7 mg/dL (0.1-1.0); CALCIUM, TOTAL 8.4 mg/dL (8.8-10.5); CARBON DIOXIDE 24 mmol/L (22-29); CHLORIDE 108 mmol/L (98-107); CREATININE 0.89 mg/dL (0.60-1.30); GLOMERULAR FILTR. RATE CALC > 60 mL/min (>60); GLUCOSE,RANDOM 135 mg/dL (70-110); POTASSIUM 4.5 mmol/L (3.5-5.1); SODIUM SERUM 143 mmol/L (136-145); TOTAL PROTEIN, SERUM 6.1 g/dL (6.4-8.2); UREA NITROGEN, BLOOD 14 mg/dL (7-18)
[2024-10-01 13:15] LABS: NEUTROPHILS % (AUTO) 90.2 % (40.0-70.0)
[2024-10-02] VITALS (12 sets, daily range): BP systolic 90–166; BP diastolic 45–78; PULSE 79–113; RESP 20–37; TEMP 97–99.9; O2SAT 81–100
[2024-10-02 08:58] LABS: SOURCE, BLOOD GAS ARTERIAL; TEMPERATURE, FAHRENHEIT, BG 97.5 FAHREN (96.0-98.6)
[2024-10-02 09:41] LABS: ABG CARBOXYHEMOGLOBIN 0.2 % (0.5-1.5); ABG HCO3 21.5 mmol/L (21.0-28.0); ABG METHEMOGLOBIN 0.3 % (0.0-1.5); ABG OXYGEN CONTENT 10.9 mL/dL (15.0-23.0); ABG OXYHEMOGLOBIN 80.6 % (94.0-98.0); ABG PCO2 30 mmHg (32.0-45.0); ABG TOTAL HEMOGLOBIN 9.6 G/dL (12.0-16.0)
[2024-10-02 09:44] LABS: O2 DEVICE,BLOOD GAS VENTI MASK (ROOM AIR); PO2, ARTERIAL BG 43.1 mmHg (83.0-108.0); SITE, BLOOD GAS LFT BRACHIAL
[2024-10-02 10:51] LABS: HEMATOCRIT 29.6 % (36-46); HEMOGLOBIN 9.4 g/dL (12.0-16.0); MEAN CORPUSCULAR HGB CONC 31.7 G/dL (31.0-37.0); MEAN CORPUSCULAR VOLUME 98 fL (80-100); PLATELET COUNT (AUTO) 178 K/uL (150-450); RED BLOOD CELL COUNT(AUTO) 3.02 MIL/uL (4.00-5.20); RED CELL DISTRIBUTION WIDTH 16.2 % (11.5-14.5); WHITE BLOOD COUNT (AUTO) 21.3 K/uL (4.5-11.0)
[2024-10-02 11:02] LABS: ALANINE AMINOTRANSFERASE 43 U/L (12-78); ALBUMIN 1.4 g/dL (3.4-5.0); ALKALINE PHOSPHATASE 395 U/L (46-116); ANION GAP 12 mmol/L (8-16); ASPARTATE AMINOTRANSFERASE 71 U/L (15-37); BILIRUBIN,TOTAL 0.7 mg/dL (0.1-1.0); CALCIUM, TOTAL 8.6 mg/dL (8.8-10.5); CARBON DIOXIDE 25 mmol/L (22-29); CHLORIDE 107 mmol/L (98-107); CREATININE 0.88 mg/dL (0.60-1.30); GLOMERULAR FILTR. RATE CALC > 60 mL/min (>60); GLUCOSE,RANDOM 154 mg/dL (70-110); POTASSIUM 4.5 mmol/L (3.5-5.1); SODIUM SERUM 144 mmol/L (136-145); TOTAL PROTEIN, SERUM 6.3 g/dL (6.4-8.2); UREA NITROGEN, BLOOD 18 mg/dL (7-18)
[2024-10-02 11:40] LABS: BAND NEUTROPHILS % (MANUAL) 0 % (0-5)
[2024-10-02 11:45] LABS: LYMPHOCYTES % (MANUAL) 1 % (22-44); MONOCYTES % (MANUAL) 3 % (2-9); SEGMENTED NEUTROPHILS % 96 % (40-70); TOTAL CELLS COUNTED 100
[2024-10-02] MEDS ORDERED: SODIUM CHLORIDE 0.9% 250 ML IV ONE (12:20)
[2024-10-02] MEDS: DEXMEDETOMIDINE HCL 400 MCG in SODIUM CHLORIDE 0.9% 96 ML IV PRN (12:36)
[2024-10-02 13:37] LABS: ABG BASE EXCESS -3.5 mmol/L (-2.0-3.0); ABG CARBOXYHEMOGLOBIN 0.6 % (0.5-1.5); ABG HCO3 21.3 mmol/L (21.0-28.0); ABG METHEMOGLOBIN 0.2 % (0.0-1.5); ABG OXYGEN CONTENT 7.2 mL/dL (15.0-23.0); ABG OXYHEMOGLOBIN 57.5 % (94.0-98.0); ABG PCO2 35 mmHg (32.0-45.0); ABG PH 7.403 (7.350-7.450); ABG TOTAL HEMOGLOBIN 8.9 G/dL (12.0-16.0); SOURCE, BLOOD GAS ARTERIAL
[2024-10-02] MEDS ORDERED: ETOMIDATE 2 MG/ML 10 ML VIAL ONE (13:43)
[2024-10-02] MEDS ORDERED: ROCURONIUM BROMIDE 10 MG/ML 5 ML VIAL ONE (13:44)
[2024-10-02] MEDS: ETOMIDATE 2 MG/ML 10 ML VIAL IVP ONE (13:47)
[2024-10-02] MEDS: ROCURONIUM BROMIDE 10 MG/ML 5 ML VIAL IVP ONE (13:51)
[2024-10-02 14:11] LABS: O2 DEVICE,BLOOD GAS BIPAP (ROOM AIR); PO2, ARTERIAL BG 31.1 mmHg (83.0-108.0); SITE, BLOOD GAS RT BRACHIAL; VT, ABG 567 ml
[2024-10-02] MEDS: *CLINICAL-CEFEPIME DOSING CLINICAL ONE (15:04)
[2024-10-02] MEDS ORDERED: NOREPINEPHRINE 8 MG/0.9 % NACL 250 ML IV ONE (15:04)
[2024-10-02] MEDS: PROPOFOL 1000 MG/ISO-OSM 100 ML IV PRN (15:38)
[2024-10-02] MEDS: FentaNYL CIT 1000MCG/0.9% NACL 100 ML IV PRN (15:39)
[2024-10-02 16:45] LABS: SOURCE, BLOOD GAS ARTERIAL
[2024-10-02 17:02] LABS: TEMPERATURE, FAHRENHEIT, BG 99.8 FAHREN (96.0-98.6)
[2024-10-02 17:18] LABS: ABG BASE EXCESS -2.5 mmol/L (-2.0-3.0); ABG CARBOXYHEMOGLOBIN 0.3 % (0.5-1.5); ABG HCO3 22.9 mmol/L (21.0-28.0); ABG METHEMOGLOBIN 0.4 % (0.0-1.5); ABG OXYGEN CONTENT 12.5 mL/dL (15.0-23.0); ABG OXYHEMOGLOBIN 98.3 % (94.0-98.0); ABG PCO2 30 mmHg (32.0-45.0); ABG PH 7.464 (7.350-7.450); ABG TOTAL HEMOGLOBIN 8.8 G/dL (12.0-16.0); O2 DEVICE,BLOOD GAS VENTILATOR (ROOM AIR); PEEP,BG 5 cm H2O; PO2, ARTERIAL BG 148.9 mmHg (83.0-108.0); SITE, BLOOD GAS RT BRACHIAL; VT, ABG 400 ml
[2024-10-02 17:19] LABS: SPONTANEOUS VT, BG 410 ml
[2024-10-02] MEDS: CEFEPIME HCL 2 GM in DEXTROSE 5%-WATER 50 ML IV SCH (17:55)
[2024-10-02] MEDS: VANCOMYCIN 1.25 GM/WATER(PEG) 250 ML IV ONE (18:11)
[2024-10-02 20:32] LABS: APPEARANCE,URINE CLEAR (CLEAR); BILIRUBIN,URINE NEGATIVE (NEGATIVE); COLOR,URINE YELLOW (YELLOW); GLUCOSE, URINE (UA) NEGATIVE (NEGATIVE); KETONES,URINE TRACE mg/dL (NEGATIVE); LEUKOCYTE ESTERASE ,URINE NEGATIVE (NEGATIVE); NITRATE,URINE NEGATIVE (NEGATIVE); OCCULT BLOOD,URINE MODERATE (NEGATIVE); PROTEIN,URINE 100-200,SEE CONFIRM mg/dL (NEGATIVE); SPECIFIC GRAVITIY, URINE 1.028 (1.003-1.030); UROBILINOGEN,URINE <=1.0 mg/dL (<=1.0)
[2024-10-02 20:45] LABS: BACTERIA,URINE Moderate /HPF (None Seen); SQUAMOUS EPITHELIAL CELL,UR Few /LPF (None Seen)
[2024-10-02 20:49] LABS: SULFOSALICYLIC ACID,URINE Negative (Negative)
[2024-10-03] VITALS (15 sets, daily range): BP systolic 82–113; BP diastolic 50–69; PULSE 68–87; RESP 19–27; TEMP 96.4–98.2; O2SAT 95–100
[2024-10-03] MEDS: NOREPINEPHRINE 8 MG/0.9 % NACL 250 ML IV PRN (05:09)
[2024-10-03 05:51] LABS: BASOPHILS % (AUTO) 0.2 % (0.0-2.0); EOSINOPHILS % (AUTO) 0.7 % (1.0-6.0); HEMATOCRIT 24.3 % (36-46); HEMOGLOBIN 8.1 g/dL (12.0-16.0); LYMPHOCYTES # (AUTO) 0.6 K/uL (1.0-4.8); LYMPHOCYTES % (AUTO) 4.3 % (22.0-44.0); MEAN CORPUSCULAR HEMOGLOBIN 32.3 pg (26.0-34.0); MEAN CORPUSCULAR HGB CONC 33.3 G/dL (31.0-37.0); MEAN CORPUSCULAR VOLUME 97 fL (80-100); MONOCYTES # (AUTO) 0.4 K/uL (0.1-1.0); MONOCYTES % (AUTO) 3.2 % (2.0-9.0); NEUTROPHILS # (AUTO) 12.2 K/uL (1.8-7.7); PLATELET COUNT (AUTO) 170 K/uL (150-450); RED CELL DISTRIBUTION WIDTH 16.3 % (11.5-14.5); WHITE BLOOD COUNT (AUTO) 13.4 K/uL (4.5-11.0)
[2024-10-03 05:58] LABS: NEUTROPHILS % (AUTO) 91.6 % (40.0-70.0)
[2024-10-03 06:08] LABS: ALBUMIN 1.1 g/dL (3.4-5.0); BILIRUBIN,TOTAL 0.6 mg/dL (0.1-1.0); CALCIUM, TOTAL 8.2 mg/dL (8.8-10.5); CREATININE 1.26 mg/dL (0.60-1.30); POTASSIUM 3.9 mmol/L (3.5-5.1); TOTAL PROTEIN, SERUM 5.4 g/dL (6.4-8.2)
[2024-10-03] MEDS ORDERED: VANCOMYCIN 750 MG/WATER(PEG) 150 ML IV SCH (08:00)
[2024-10-03] MEDS: VANCOMYCIN 1.25 GM/WATER(PEG) 250 ML IV SCH (08:54)
[2024-10-03 20:17] LABS: GLUCOMETER DEV NAME(LOC) 5S.1D; GLUCOSE,POINT OF CARE 174 MG/DL (70-110)
[2024-10-04] VITALS (18 sets, daily range): BP systolic 77–125; BP diastolic 44–91; PULSE 74–104; RESP 16–35; TEMP 97.1–100.3; O2SAT 26–100
[2024-10-04 07:03] LABS: MEAN CORPUSCULAR HEMOGLOBIN 31.7 pg (26.0-34.0); MEAN CORPUSCULAR HGB CONC 32.3 G/dL (31.0-37.0); MEAN CORPUSCULAR VOLUME 98 fL (80-100); PLATELET COUNT (AUTO) 186 K/uL (150-450); RED BLOOD CELL COUNT(AUTO) 3.15 MIL/uL (4.00-5.20); RED CELL DISTRIBUTION WIDTH 16.1 % (11.5-14.5); WHITE BLOOD COUNT (AUTO) 16.6 K/uL (4.5-11.0)
[2024-10-04 07:06] LABS: ALBUMIN 1.2 g/dL (3.4-5.0); BILIRUBIN,TOTAL 0.8 mg/dL (0.1-1.0); CALCIUM, TOTAL 8.7 mg/dL (8.8-10.5); CREATININE 1.5 mg/dL (0.60-1.30); POTASSIUM 3.9 mmol/L (3.5-5.1); TOTAL PROTEIN, SERUM 6.2 g/dL (6.4-8.2)
[2024-10-04] MEDS: VANCOMYCIN 1GM/WATER(PEG/NADA) 200 ML IV SCH (08:15)
[2024-10-04 08:35] LABS: BAND NEUTROPHILS % (MANUAL) 8 % (0-5); LYMPHOCYTES % (MANUAL) 7 % (22-44); MONOCYTES % (MANUAL) 2 % (2-9); SEGMENTED NEUTROPHILS % 83 % (40-70); TOTAL CELLS COUNTED 100
[2024-10-04 08:36] LABS: RBC MORPHOLOGY COMMENT NORMAL RBC MORPH
[2024-10-04] MEDS: DEXMEDETOMIDINE HCL 400 MCG in SODIUM CHLORIDE 0.9% 96 ML IV PRN (11:44)
[2024-10-05] VITALS (20 sets, daily range): BP systolic 94–130; BP diastolic 45–67; PULSE 59–85; RESP 16–29; TEMP 96.5–100; O2SAT 92–100
[2024-10-05] MEDS ORDERED: SODIUM CHLORIDE 0.9% 250 ML IV ONE (02:48)
[2024-10-05 06:04] LABS: HEMATOCRIT 25.8 % (36-46); HEMOGLOBIN 8.4 g/dL (12.0-16.0); MEAN CORPUSCULAR HEMOGLOBIN 31.6 pg (26.0-34.0); MEAN CORPUSCULAR HGB CONC 32.5 G/dL (31.0-37.0); MEAN CORPUSCULAR VOLUME 97 fL (80-100); PLATELET COUNT (AUTO) 133 K/uL (150-450); RED BLOOD CELL COUNT(AUTO) 2.65 MIL/uL (4.00-5.20); RED CELL DISTRIBUTION WIDTH 16.4 % (11.5-14.5); WHITE BLOOD COUNT (AUTO) 13.1 K/uL (4.5-11.0)
[2024-10-05 06:17] LABS: BILIRUBIN,TOTAL 0.8 mg/dL (0.1-1.0); CALCIUM, TOTAL 8.1 mg/dL (8.8-10.5); CREATININE 1.8 mg/dL (0.60-1.30); POTASSIUM 3.3 mmol/L (3.5-5.1); TOTAL PROTEIN, SERUM 5.4 g/dL (6.4-8.2)
[2024-10-05] MEDS: POTASSIUM CHL 10 MEQ/WATER 50 ML IV PRN (06:41)
[2024-10-05 07:31] LABS: BAND NEUTROPHILS % (MANUAL) 5 % (0-5); BASOPHILS % (MANUAL) 1 % (0-2); EOSINOPHILS % (MANUAL) 1 % (1-6); LYMPHOCYTES % (MANUAL) 7 % (22-44); MONOCYTES % (MANUAL) 3 % (2-9); REACTIVE LYMPHOCYTES 1 % (0-0); SEGMENTED NEUTROPHILS % 82 % (40-70); TOTAL CELLS COUNTED 100
[2024-10-05] MEDS: ALBUMIN HUMAN 25%-12.5GM/50ML 50 ML IV SCH (10:55)
[2024-10-05] MEDS: CEFEPIME HCL 1 GM in DEXTROSE 5%-WATER 50 ML IV SCH (17:07)
[2024-10-05] MEDS: ETHYL ALCOHOL 62% ANTISEPTIC NASAL SANITIZER 0.6 ML AMPUL NASAL SCH (20:55)
[2024-10-05] MEDS: DOCUSATE SODIUM 100 MG/10 ML LIQUID UDCUP NG SCH (20:55)
[2024-10-06] VITALS (14 sets, daily range): BP systolic 81–130; BP diastolic 49–66; PULSE 65–108; RESP 11–33; TEMP 99.4–100.5; O2SAT 92–100
[2024-10-06 05:55] LABS: BASOPHILS % (AUTO) 1.1 % (0.0-2.0); EOSINOPHILS % (AUTO) 0.5 % (1.0-6.0); HEMATOCRIT 23.3 % (36-46); HEMOGLOBIN 7.7 g/dL (12.0-16.0); LYMPHOCYTES # (AUTO) 0.8 K/uL (1.0-4.8); MEAN CORPUSCULAR HEMOGLOBIN 32.3 pg (26.0-34.0); MEAN CORPUSCULAR HGB CONC 33.1 G/dL (31.0-37.0); MEAN CORPUSCULAR VOLUME 97 fL (80-100); MONOCYTES # (AUTO) 0.5 K/uL (0.1-1.0); MONOCYTES % (AUTO) 5.1 % (2.0-9.0); NEUTROPHILS # (AUTO) 8.8 K/uL (1.8-7.7); NEUTROPHILS % (AUTO) 85.3 % (40.0-70.0); PLATELET COUNT (AUTO) 84 K/uL (150-450); RED CELL DISTRIBUTION WIDTH 16.2 % (11.5-14.5); WHITE BLOOD COUNT (AUTO) 10.3 K/uL (4.5-11.0)
[2024-10-06 06:05] LABS: CALCIUM, TOTAL 8.3 mg/dL (8.8-10.5); CREATININE 1.89 mg/dL (0.60-1.30); MAGNESIUM 1.8 mg/dL (1.80-2.40); POTASSIUM 3.9 mmol/L (3.5-5.1); PROTHROMBIN TIME 12.9 SEC (9.4-11.6)
[2024-10-06 15:41] LABS: GLUCOMETER DEV NAME(LOC) ICUN.5; GLUCOSE,POINT OF CARE 141 MG/DL (70-110)
[2024-10-07] VITALS (19 sets, daily range): BP systolic 94–142; BP diastolic 47–70; PULSE 69–112; RESP 14–37; TEMP 97.3–100.7; O2SAT 92–100
[2024-10-07 06:15] LABS: HEMATOCRIT 24.1 % (36-46); HEMOGLOBIN 7.7 g/dL (12.0-16.0); MEAN CORPUSCULAR HEMOGLOBIN 31.4 pg (26.0-34.0); MEAN CORPUSCULAR HGB CONC 32.1 G/dL (31.0-37.0); MEAN CORPUSCULAR VOLUME 98 fL (80-100); RED BLOOD CELL COUNT(AUTO) 2.47 MIL/uL (4.00-5.20); RED CELL DISTRIBUTION WIDTH 16.5 % (11.5-14.5); WHITE BLOOD COUNT (AUTO) 12.9 K/uL (4.5-11.0)
[2024-10-07 06:30] LABS: ALBUMIN 2.1 g/dL (3.4-5.0); CALCIUM, TOTAL 8.6 mg/dL (8.8-10.5); CREATININE 2.43 mg/dL (0.60-1.30); POTASSIUM 3.5 mmol/L (3.5-5.1)
[2024-10-07 06:33] LABS: DIGOXIN 2.4 ng/mL (0.90-2.00)
[2024-10-07 07:21] LABS: BAND NEUTROPHILS % (MANUAL) 2 % (0-5); BASOPHILS % (MANUAL) 1 % (0-2); EOSINOPHILS % (MANUAL) 1 % (1-6); LYMPHOCYTES % (MANUAL) 8 % (22-44); MONOCYTES % (MANUAL) 5 % (2-9); SEGMENTED NEUTROPHILS % 83 % (40-70); TOTAL CELLS COUNTED 100
[2024-10-07 07:23] LABS: PLATELET COUNT (AUTO) 82 K/uL (150-450); RBC MORPHOLOGY COMMENT ABNORMAL RBC MORPH
[2024-10-07] MEDS ORDERED: LIDOCAINE/PF 1% 30 ML VIAL ONE (08:29)
[2024-10-07] MEDS: PANTOPRAZOLE SODIUM 40 MG/VIAL IVP SCH (10:53)
[2024-10-07] MEDS: POTASSIUM CHLORIDE 20 MEQ ER TABLET PO PRN (10:54)
[2024-10-07] MEDS: MIDODRINE HCL 5 MG TABLET NG SCH (15:07)
[2024-10-07] MEDS ORDERED: SODIUM CHLORIDE 0.9% 250 ML IV ONE (23:57)
[2024-10-08] VITALS (21 sets, daily range): BP systolic 97–121; BP diastolic 44–62; PULSE 7–95; RESP 14–24; TEMP 97.5–99; O2SAT 90–100
[2024-10-08 06:15] LABS: HEMATOCRIT 24.3 % (36-46); HEMOGLOBIN 7.6 g/dL (12.0-16.0); MEAN CORPUSCULAR HEMOGLOBIN 30.7 pg (26.0-34.0); MEAN CORPUSCULAR HGB CONC 31.2 G/dL (31.0-37.0); MEAN CORPUSCULAR VOLUME 98 fL (80-100); PLATELET COUNT (AUTO) 79 K/uL (150-450); RED BLOOD CELL COUNT(AUTO) 2.48 MIL/uL (4.00-5.20); WHITE BLOOD COUNT (AUTO) 12.9 K/uL (4.5-11.0)
[2024-10-08 06:29] LABS: ALBUMIN 1.5 g/dL (3.4-5.0); BILIRUBIN,TOTAL 0.7 mg/dL (0.1-1.0); CALCIUM, TOTAL 8.6 mg/dL (8.8-10.5); CREATININE 3.11 mg/dL (0.60-1.30); POTASSIUM 4.3 mmol/L (3.5-5.1); TOTAL PROTEIN, SERUM 5.5 g/dL (6.4-8.2)
[2024-10-08 07:14] LABS: BAND NEUTROPHILS % (MANUAL) 3 % (0-5); LYMPHOCYTES % (MANUAL) 9 % (22-44); MONOCYTES % (MANUAL) 4 % (2-9); SEGMENTED NEUTROPHILS % 84 % (40-70); TOTAL CELLS COUNTED 100
[2024-10-08 10:41] LABS: ABG BASE EXCESS -15.8 mmol/L (-2.0-3.0); ABG CARBOXYHEMOGLOBIN 0.3 % (0.5-1.5); ABG HCO3 12.8 mmol/L (21.0-28.0); ABG METHEMOGLOBIN 0.4 % (0.0-1.5); ABG OXYGEN CONTENT 10.5 mL/dL (15.0-23.0); ABG OXYGEN SATURATION 87.9 % (94.0-98.0); ABG OXYHEMOGLOBIN 87.3 % (94.0-98.0); ABG PCO2 33 mmHg (32.0-45.0); ABG TOTAL HEMOGLOBIN 8.5 G/dL (12.0-16.0); PO2, ARTERIAL BG 62.2 mmHg (83.0-108.0); SOURCE, BLOOD GAS ARTERIAL; TEMPERATURE, FAHRENHEIT, BG 98.6 FAHREN (96.0-98.6)
[2024-10-08 10:42] LABS: ABG A-A DIFF O2 256.7 mmHg (10-20.0); ABG PH 7.189 (7.350-7.450); ALLEN TEST, BLOOD GAS Positive; O2 DEVICE,BLOOD GAS VENTILATOR (ROOM AIR); PEEP,BG 5 cm H2O; SITE, BLOOD GAS RT RADIAL; SPONTANEOUS VT, BG 396 ml; VT, ABG 400 ml
[2024-10-08] MEDS: BISACODYL 10 MG RECTAL RECTAL SUPPOSITORY PR ONE (10:58)
[2024-10-08] MEDS: SENNOSIDES 8.8 MG/5 ML SYRUP UDCUP NG ONE (10:58)
[2024-10-08] MEDS: SODIUM BICARBONATE [ADULT] 8.4% 50 MEQ/50 ML SYRINGE IVP ONE (10:59)
[2024-10-08] MEDS: ALBUMIN HUMAN 25%-25GM/100ML 100 ML IV SCH (10:59)
[2024-10-08] MEDS ORDERED: SODIUM BICARBONATE 75 MEQ in DEXTROSE 5%-0.45% SODIUM CHL 1,000 ML IV SCH (16:45)
[2024-10-08] MEDS: SODIUM BICARBONATE 75 MEQ in DEXTROSE 5%-0.45% SODIUM CHL 1,000 ML IV SCH (17:38)
[2024-10-08] MEDS: POLYETHYLENE GLYCOL 3350 17 GM PACKET NG SCH (21:31)
[2024-10-08 22:11] LABS: GLUCOMETER DEV NAME(LOC) ICUN.5; GLUCOSE,POINT OF CARE 109 MG/DL (70-110)
[2024-10-09] VITALS (18 sets, daily range): BP systolic 83–163; BP diastolic 40–56; PULSE 67–77; RESP 14–23; TEMP 96.5–99.5; O2SAT 90–100
[2024-10-09 05:48] LABS: BASOPHILS % (AUTO) 0.7 % (0.0-2.0); EOSINOPHILS % (AUTO) 0.6 % (1.0-6.0); HEMATOCRIT 22.7 % (36-46); LYMPHOCYTES # (AUTO) 1.3 K/uL (1.0-4.8); LYMPHOCYTES % (AUTO) 8.9 % (22.0-44.0); MEAN CORPUSCULAR HEMOGLOBIN 30.2 pg (26.0-34.0); MEAN CORPUSCULAR HGB CONC 30.7 G/dL (31.0-37.0); MEAN CORPUSCULAR VOLUME 99 fL (80-100); MONOCYTES # (AUTO) 0.6 K/uL (0.1-1.0); MONOCYTES % (AUTO) 3.9 % (2.0-9.0); NEUTROPHILS # (AUTO) 12.3 K/uL (1.8-7.7); PLATELET COUNT (AUTO) 59 K/uL (150-450); RED CELL DISTRIBUTION WIDTH 16.9 % (11.5-14.5)
[2024-10-09 05:58] LABS: ALBUMIN 1.8 g/dL (3.4-5.0); BILIRUBIN,TOTAL 0.7 mg/dL (0.1-1.0); CALCIUM, TOTAL 8.2 mg/dL (8.8-10.5); CREATININE 3.74 mg/dL (0.60-1.30); PHOSPHORUS 6.9 mg/dL (2.5-4.9); POTASSIUM 4.2 mmol/L (3.5-5.1); TOTAL PROTEIN, SERUM 5.2 g/dL (6.4-8.2)
[2024-10-09 06:04] LABS: NEUTROPHILS % (AUTO) 85.9 % (40.0-70.0); WHITE BLOOD COUNT (AUTO) 15.2 K/uL (4.5-11.0)
[2024-10-09] MEDS ORDERED: SODIUM CHLORIDE 0.9% 250 ML IV ONE (07:44)
[2024-10-09] MEDS: METOCLOPRAMIDE HCL 5 MG/ML 2 ML VIAL IVP SCH (10:27)
[2024-10-09] MEDS ORDERED: SODIUM CHLORIDE 0.9% 500 ML IV ONE (13:05)
[2024-10-09 20:33] LABS: ABG BASE EXCESS -10.1 mmol/L (-2.0-3.0); ABG CARBOXYHEMOGLOBIN 0.4 % (0.5-1.5); ABG HCO3 16.9 mmol/L (21.0-28.0); ABG METHEMOGLOBIN 0.5 % (0.0-1.5); ABG OXYGEN CONTENT 10.1 mL/dL (15.0-23.0); ABG OXYGEN SATURATION 99.5 % (94.0-98.0); ABG OXYHEMOGLOBIN 98.6 % (94.0-98.0); ABG PCO2 35 mmHg (32.0-45.0); ABG PH 7.288 (7.350-7.450); PO2, ARTERIAL BG 200.8 mmHg (83.0-108.0); SOURCE, BLOOD GAS ARTERIAL; TEMPERATURE, FAHRENHEIT, BG 98.6 FAHREN (96.0-98.6)
[2024-10-09 20:38] LABS: ABG TOTAL HEMOGLOBIN 6.9 G/dL (12.0-16.0); O2 DEVICE,BLOOD GAS VENT (ROOM AIR); SITE, BLOOD GAS ALINE; VT, ABG 400 ml
[2024-10-09 20:39] LABS: PEEP,BG 8 cm H2O
[2024-10-09] MEDS: PANTOPRAZOLE SODIUM 40 MG/VIAL IVP SCH (21:16)
[2024-10-10] VITALS (33 sets, daily range): BP systolic 61–166; BP diastolic 28–98; PULSE 40–102; RESP 14–39; TEMP 96.8–100; O2SAT 67–100
[2024-10-10 05:47] LABS: BASOPHILS % (AUTO) 0.1 % (0.0-2.0); EOSINOPHILS % (AUTO) 0.2 % (1.0-6.0); LYMPHOCYTES # (AUTO) 0.6 K/uL (1.0-4.8); LYMPHOCYTES % (AUTO) 4.7 % (22.0-44.0); MEAN CORPUSCULAR HEMOGLOBIN 30.7 pg (26.0-34.0); MEAN CORPUSCULAR HGB CONC 32.1 G/dL (31.0-37.0); MEAN CORPUSCULAR VOLUME 96 fL (80-100); MONOCYTES # (AUTO) 0.7 K/uL (0.1-1.0); MONOCYTES % (AUTO) 5.9 % (2.0-9.0); NEUTROPHILS # (AUTO) 10.7 K/uL (1.8-7.7); PLATELET COUNT (AUTO) 49 K/uL (150-450); RED BLOOD CELL COUNT(AUTO) 2.09 MIL/uL (4.00-5.20)
[2024-10-10 05:56] LABS: HEMOGLOBIN 6.4 g/dL (12.0-16.0); NEUTROPHILS % (AUTO) 89.1 % (40.0-70.0)
[2024-10-10 06:06] LABS: CALCIUM, TOTAL 7.9 mg/dL (8.8-10.5); CREATININE 4.06 mg/dL (0.60-1.30); POTASSIUM 3.7 mmol/L (3.5-5.1)
[2024-10-10 06:54] LABS: RBC MORPHOLOGY COMMENT ABNORMAL RBC MORPH
[2024-10-10] MEDS: PANTOPRAZOLE SODIUM 40 MG/VIAL IVP ONE (12:42)
[2024-10-10] MEDS: PANTOPRAZOLE SODIUM 80 MG in SODIUM CHLORIDE 0.9% 100 ML IV SCH (14:29)
[2024-10-10] MEDS ORDERED: SODIUM CHLORIDE 0.9% 250 ML IV ONE ×2 (17:05→20:52)
[2024-10-10 17:25] LABS: ABG BASE EXCESS -19.1 mmol/L (-2.0-3.0); ABG CARBOXYHEMOGLOBIN 0.3 % (0.5-1.5); ABG HCO3 10.6 mmol/L (21.0-28.0); ABG METHEMOGLOBIN 0.6 % (0.0-1.5); ABG OXYGEN CONTENT 8.6 mL/dL (15.0-23.0); ABG OXYGEN SATURATION 89.7 % (94.0-98.0); ABG OXYHEMOGLOBIN 88.9 % (94.0-98.0); ABG PCO2 33 mmHg (32.0-45.0); ABG PH 7.118 (7.350-7.450); ABG TOTAL HEMOGLOBIN 6.8 G/dL (12.0-16.0); PO2, ARTERIAL BG 72.4 mmHg (83.0-108.0); SITE, BLOOD GAS ARTERIAL LINE; SOURCE, BLOOD GAS ARTERIAL; TEMPERATURE, FAHRENHEIT, BG 97.5 FAHREN (96.0-98.6)
[2024-10-10 17:26] LABS: ABG A-A DIFF O2 320.3 mmHg (10-20.0); O2 DEVICE,BLOOD GAS VENTILATOR (ROOM AIR); PEEP,BG 7 cm H2O; VT, ABG 400 ml
[2024-10-10] MEDS ORDERED: VASOPRESSIN 40 UNITS in DEXTROSE 5%-WATER 98 ML IV PRN (17:45)
[2024-10-10] MEDS ORDERED: DOPamine 400MG/D5W[STANDARD] 250 ML IV PRN (17:45)
[2024-10-10] MEDS ORDERED: PHENYLEPHRINE 200 MG/D5%-WATER 250 ML IV PRN (17:45)
[2024-10-10] MEDS: SODIUM BICARBONATE [ADULT] 8.4% 50 MEQ/50 ML SYRINGE IVP ONE (18:19)
[2024-10-10] MEDS: HEPARIN SODIUM,PORCINE 1,000 UNITS/ML VIAL IVCATH ONE ×2 (21:42)
[2024-10-10] MEDS: MIDAZOLAM HCL 100 MG in SODIUM CHLORIDE 0.9% 180 ML IV PRN (21:53)
[2024-10-11] VITALS (30 sets, daily range): BP systolic 112–197; BP diastolic 38–103; PULSE 65–100; RESP 14–34; TEMP 97.9–99.5; O2SAT 87–100
[2024-10-11] MEDS ORDERED: ALBUMIN HUMAN 25%-12.5GM/50ML IV BOTTLE IV ONE (00:13)
[2024-10-11] MEDS ORDERED: HEPARIN SODIUM,PORCINE 1,000 UNITS/ML VIAL IVP ONE (00:13)
[2024-10-11 00:47] LABS: HEMATOCRIT 22.2 % (36-46); HEMOGLOBIN 7.1 g/dL (12.0-16.0); MEAN CORPUSCULAR HEMOGLOBIN 30.1 pg (26.0-34.0); MEAN CORPUSCULAR HGB CONC 31.9 G/dL (31.0-37.0); MEAN CORPUSCULAR VOLUME 95 fL (80-100); PLATELET COUNT (AUTO) 40 K/uL (150-450); RED BLOOD CELL COUNT(AUTO) 2.34 MIL/uL (4.00-5.20); RED CELL DISTRIBUTION WIDTH 16.1 % (11.5-14.5)
[2024-10-11 02:30] LABS: BAND NEUTROPHILS % (MANUAL) 0 % (0-5)
[2024-10-11 03:59] LABS: CORRECTED WHITE BLOOD COUNT 15.7 K/uL (4.5-11.0); EOSINOPHILS % (MANUAL) 1 % (1-6); LYMPHOCYTES % (MANUAL) 4 % (22-44); MONOCYTES % (MANUAL) 6 % (2-9); SEGMENTED NEUTROPHILS % 89 % (40-70); TOTAL CELLS COUNTED 100; WHITE BLOOD COUNT (AUTO) 15.7 K/uL (4.5-11.0)
[2024-10-11 04:00] LABS: RBC MORPHOLOGY COMMENT ABNORMAL R
[2024-10-11 05:30] LABS: CREATININE 2.85 mg/dL (0.60-1.30); MAGNESIUM 1.9 mg/dL (1.80-2.40); POTASSIUM 3.3 mmol/L (3.5-5.1)
[2024-10-11 05:43] LABS: HEMATOCRIT 21.9 % (36-46); MEAN CORPUSCULAR HEMOGLOBIN 29.4 pg (26.0-34.0); MEAN CORPUSCULAR HGB CONC 31.2 G/dL (31.0-37.0); MEAN CORPUSCULAR VOLUME 94 fL (80-100); PLATELET COUNT (AUTO) 40 K/uL (150-450); RED BLOOD CELL COUNT(AUTO) 2.32 MIL/uL (4.00-5.20); RED CELL DISTRIBUTION WIDTH 16.4 % (11.5-14.5)
[2024-10-11 05:52] LABS: HEMOGLOBIN 6.8 g/dL (12.0-16.0)
[2024-10-11 06:30] LABS: BAND NEUTROPHILS % (MANUAL) 0 % (0-5)
[2024-10-11 06:45] LABS: CORRECTED WHITE BLOOD COUNT 16.7 K/uL (4.5-11.0); LYMPHOCYTES % (MANUAL) 4 % (22-44); MONOCYTES % (MANUAL) 5 % (2-9); SEGMENTED NEUTROPHILS % 91 % (40-70); TOTAL CELLS COUNTED 100
[2024-10-11 06:46] LABS: RBC MORPHOLOGY COMMENT ABNORMAL R; WHITE BLOOD COUNT (AUTO) 16.7 K/uL (4.5-11.0)
[2024-10-11] MEDS ORDERED: MIDAZOLAM HCL 2 MG/2 ML VIAL IVP PRN (11:00)
[2024-10-11] MEDS ORDERED: SODIUM CHLORIDE 0.9% 250 ML IV ONE (11:33)
[2024-10-11 18:44] LABS: ABG BASE EXCESS -1.2 mmol/L (-2.0-3.0); ABG CARBOXYHEMOGLOBIN 0.3 % (0.5-1.5); ABG HCO3 23.4 mmol/L (21.0-28.0); ABG METHEMOGLOBIN 0.4 % (0.0-1.5); ABG OXYGEN SATURATION 98.8 % (94.0-98.0); ABG OXYHEMOGLOBIN 98.1 % (94.0-98.0); ABG PCO2 47 mmHg (32.0-45.0); ABG PH 7.339 (7.350-7.450); ABG TOTAL HEMOGLOBIN 9.9 G/dL (12.0-16.0); SOURCE, BLOOD GAS ARTERIAL; TEMPERATURE, FAHRENHEIT, BG 99.1 FAHREN (96.0-98.6)
[2024-10-11 18:45] LABS: ABG A-A DIFF O2 346.8 mmHg (10-20.0); O2 DEVICE,BLOOD GAS VENTILATOR (ROOM AIR); PEEP,BG 10 cm H2O; SITE, BLOOD GAS ARTERIAL LINE; SPONTANEOUS VT, BG 397 ml; VT, ABG 400 ml
[2024-10-11 21:15] LABS: HEMATOCRIT 28.3 % (36-46); HEMOGLOBIN 9.2 g/dL (12.0-16.0); MEAN CORPUSCULAR HEMOGLOBIN 29.4 pg (26.0-34.0); MEAN CORPUSCULAR HGB CONC 32.3 G/dL (31.0-37.0); MEAN CORPUSCULAR VOLUME 91 fL (80-100); RED BLOOD CELL COUNT(AUTO) 3.12 MIL/uL (4.00-5.20); RED CELL DISTRIBUTION WIDTH 16.7 % (11.5-14.5)
[2024-10-11 21:21] LABS: PLATELET COUNT (AUTO) 26 K/uL (150-450)
[2024-10-11 21:40] LABS: BAND NEUTROPHILS % (MANUAL) 2 % (0-5); CORRECTED WHITE BLOOD COUNT 17.5 K/uL (4.5-11.0); LYMPHOCYTES % (MANUAL) 5 % (22-44); MONOCYTES % (MANUAL) 4 % (2-9); SEGMENTED NEUTROPHILS % 89 % (40-70); TOTAL CELLS COUNTED 100; WHITE BLOOD COUNT (AUTO) 17.5 K/uL (4.5-11.0)
[2024-10-11 21:41] LABS: PLATELET MORPHOLOGY COMMENT LARGE PLTS PRESENT; RBC MORPHOLOGY COMMENT ABNORMAL RBC MORPH
[2024-10-11] MEDS: PANTOPRAZOLE SODIUM 40 MG/VIAL IVP SCH (21:51)
[2024-10-11] MEDS: ACETAMINOPHEN 650 MG/20.3 ML SOLUTION UDCUP NG PRN (22:49)
[2024-10-11] MEDS: CloNIDine HCL 0.1 MG TABLET PO PRN (23:23)
[2024-10-12] VITALS (14 sets, daily range): BP systolic 105–234; BP diastolic 43–98; PULSE 81–96; RESP 15–39; TEMP 99.1–100.6; O2SAT 90–100
[2024-10-12] MEDS ORDERED: HEPARIN SODIUM,PORCINE 1,000 UNITS/ML VIAL IVP ONE (00:57)
[2024-10-12 05:18] LABS: HEMATOCRIT 25.4 % (36-46); HEMOGLOBIN 8.5 g/dL (12.0-16.0); MEAN CORPUSCULAR HEMOGLOBIN 30.5 pg (26.0-34.0); MEAN CORPUSCULAR HGB CONC 33.5 G/dL (31.0-37.0); MEAN CORPUSCULAR VOLUME 91 fL (80-100); PLATELET COUNT (AUTO) 26 K/uL (150-450); RED BLOOD CELL COUNT(AUTO) 2.78 MIL/uL (4.00-5.20); RED CELL DISTRIBUTION WIDTH 17.5 % (11.5-14.5)
[2024-10-12 05:24] LABS: CREATININE 2.23 mg/dL (0.60-1.30); POTASSIUM 3.5 mmol/L (3.5-5.1)
[2024-10-12 07:52] LABS: BAND NEUTROPHILS % (MANUAL) 2 % (0-5); CORRECTED WHITE BLOOD COUNT 17.1 K/uL (4.5-11.0); LYMPHOCYTES % (MANUAL) 4 % (22-44); MONOCYTES % (MANUAL) 4 % (2-9); SEGMENTED NEUTROPHILS % 90 % (40-70); TOTAL CELLS COUNTED 100; WHITE BLOOD COUNT (AUTO) 17.1 K/uL (4.5-11.0)
[2024-10-12] MEDS ORDERED: LORazepam 2 MG/ML VIAL IM ONE (09:45)
[2024-10-12 10:03] LABS: ABG BASE EXCESS -4.6 mmol/L (-2.0-3.0); ABG METHEMOGLOBIN 0.2 % (0.0-1.5); ABG OXYGEN SATURATION 90.4 % (94.0-98.0); ABG OXYHEMOGLOBIN 90.2 % (94.0-98.0); ABG PCO2 35 mmHg (32.0-45.0); ABG PH 7.385 (7.350-7.450); ABG TOTAL HEMOGLOBIN 9.4 G/dL (12.0-16.0); O2 DEVICE,BLOOD GAS VENTILATOR (ROOM AIR); PEEP,BG 8 cm H2O; PO2, ARTERIAL BG 56.2 mmHg (83.0-108.0); SITE, BLOOD GAS ARTERIAL LINE; SOURCE, BLOOD GAS ARTERIAL; VT, ABG 400 ml
[2024-10-12] MEDS: LORazepam 2 MG/ML VIAL IVP ONE ×2 (10:28→11:23)
[2024-10-12] MEDS: METOPROLOL TARTRATE 5 MG/5 ML VIAL IVP ONE (11:23)
[2024-10-12 13:43] LABS: ABG BASE EXCESS -5.1 mmol/L (-2.0-3.0); ABG CARBOXYHEMOGLOBIN 0.3 % (0.5-1.5); ABG HCO3 20.8 mmol/L (21.0-28.0); ABG METHEMOGLOBIN 0.3 % (0.0-1.5); ABG OXYGEN CONTENT 12.5 mL/dL (15.0-23.0); ABG OXYGEN SATURATION 95.5 % (94.0-98.0); ABG OXYHEMOGLOBIN 94.9 % (94.0-98.0); ABG PCO2 35 mmHg (32.0-45.0); ABG PH 7.379 (7.350-7.450); ABG TOTAL HEMOGLOBIN 9.3 G/dL (12.0-16.0); PO2, ARTERIAL BG 83.6 mmHg (83.0-108.0); SOURCE, BLOOD GAS ARTERIAL; TEMPERATURE, FAHRENHEIT, BG 101.5 FAHREN (96.0-98.6)
[2024-10-12 13:45] LABS: SITE, BLOOD GAS ARTERIAL LINE
[2024-10-12 13:46] LABS: O2 DEVICE,BLOOD GAS VENTILATOR (ROOM AIR); PEEP,BG 10 cm H2O; VT, ABG 350 ml
[2024-10-12] MEDS: METOPROLOL TARTRATE 5 MG/5 ML VIAL IVP SCH (15:19)
[2024-10-12] MEDS ORDERED: HEPARIN SODIUM,PORCINE 5,000 UNITS/ML VIAL SQ SCH (16:00)
[2024-10-12] MEDS: VANCOMYCIN 1.75GM/WATER(PEG) 350 ML IV ONE (16:07)
[2024-10-12] MEDS: VANCOMYCIN HCL 125 MG/2.5 ML SOLUTION ORAL.SYG NG SCH (18:12)
[2024-10-12] MEDS ORDERED: SODIUM CHLORIDE 0.9% 250 ML IV ONE (19:53)
[2024-10-13] VITALS (24 sets, daily range): BP systolic 105–194; BP diastolic 38–54; PULSE 77–90; RESP 18–36; TEMP 99.5–101.1; O2SAT 91–100
[2024-10-13 09:53] LABS: EOSINOPHILS % (AUTO) 0.3 % (1.0-6.0); HEMATOCRIT 25.3 % (36-46); HEMOGLOBIN 8.3 g/dL (12.0-16.0); LYMPHOCYTES # (AUTO) 1.3 K/uL (1.0-4.8); LYMPHOCYTES % (AUTO) 7.9 % (22.0-44.0); MEAN CORPUSCULAR HGB CONC 32.9 G/dL (31.0-37.0); MEAN CORPUSCULAR VOLUME 91 fL (80-100); MONOCYTES # (AUTO) 0.6 K/uL (0.1-1.0); MONOCYTES % (AUTO) 3.8 % (2.0-9.0); NEUTROPHILS # (AUTO) 14.8 K/uL (1.8-7.7); PLATELET COUNT (AUTO) 25 K/uL (150-450); RED BLOOD CELL COUNT(AUTO) 2.76 MIL/uL (4.00-5.20); RED CELL DISTRIBUTION WIDTH 17.3 % (11.5-14.5)
[2024-10-13 09:56] LABS: WHITE BLOOD COUNT (AUTO) 18.5 K/uL (4.5-11.0)
[2024-10-13 09:59] LABS: BILIRUBIN,DIRECT 0.8 mg/dL (0.00-0.20); BILIRUBIN,TOTAL 1.3 mg/dL (0.1-1.0); CALCIUM, TOTAL 8.1 mg/dL (8.8-10.5); MAGNESIUM 1.8 mg/dL (1.80-2.40); POTASSIUM 3.4 mmol/L (3.5-5.1)
[2024-10-13] MEDS ORDERED: VANCOMYCIN 1.75GM/WATER(PEG) 350 ML IV ONE (11:45)
[2024-10-13] MEDS ORDERED: VANCOMYCIN 1GM/WATER(PEG/NADA) 200 ML IV PRN (11:45)
[2024-10-13] MEDS: SODIUM CITRATE 4% CATH FLUSH 5 ML SYRINGE IVCATH ONE ×2 (14:42→14:43)
[2024-10-13] MEDS: *CLINICAL-MEROPENEM DOSING CLINICAL ONE (15:15)
[2024-10-13] MEDS: MEROPENEM 500 MG in SODIUM CHLORIDE 0.9% 50 ML IV SCH (18:21)
[2024-10-13] MEDS ORDERED: SODIUM CHLORIDE 0.9% 500 ML IV ONE (20:14)
[2024-10-14] VITALS (14 sets, daily range): BP systolic 113–161; BP diastolic 39–58; PULSE 79–90; RESP 28–32; TEMP 98.8–100.7; O2SAT 94–100
[2024-10-14] MEDS ORDERED: SODIUM CHLORIDE 0.9% 250 ML IV ONE (04:22)
[2024-10-14 05:48] LABS: BASOPHILS % (AUTO) 0.6 % (0.0-2.0); EOSINOPHILS % (AUTO) 0.5 % (1.0-6.0); HEMATOCRIT 26.2 % (36-46); HEMOGLOBIN 8.8 g/dL (12.0-16.0); LYMPHOCYTES # (AUTO) 0.8 K/uL (1.0-4.8); LYMPHOCYTES % (AUTO) 4.4 % (22.0-44.0); MEAN CORPUSCULAR HEMOGLOBIN 30.5 pg (26.0-34.0); MEAN CORPUSCULAR HGB CONC 33.6 G/dL (31.0-37.0); MEAN CORPUSCULAR VOLUME 91 fL (80-100); MONOCYTES # (AUTO) 0.6 K/uL (0.1-1.0); MONOCYTES % (AUTO) 3.3 % (2.0-9.0); NEUTROPHILS # (AUTO) 15.7 K/uL (1.8-7.7); NEUTROPHILS % (AUTO) 91.2 % (40.0-70.0); PLATELET COUNT (AUTO) 23 K/uL (150-450); RED BLOOD CELL COUNT(AUTO) 2.89 MIL/uL (4.00-5.20); RED CELL DISTRIBUTION WIDTH 16.4 % (11.5-14.5); WHITE BLOOD COUNT (AUTO) 17.2 K/uL (4.5-11.0)
[2024-10-14 05:56] LABS: ALBUMIN 1.9 g/dL (3.4-5.0); BILIRUBIN,TOTAL 1.3 mg/dL (0.1-1.0); CALCIUM, TOTAL 8.4 mg/dL (8.8-10.5); CREATININE 2.22 mg/dL (0.60-1.30); POTASSIUM 3.5 mmol/L (3.5-5.1)
[2024-10-14 06:08] LABS: VANCOMYCIN,RANDOM 24.6 mcg/mL (25.0-50.0)
[2024-10-14] MEDS ORDERED: CEFEPIME HCL 1 GM in DEXTROSE 5%-WATER 50 ML IV SCH (14:00)
[2024-10-14] MEDS ORDERED: SODIUM CHLORIDE 0.9% 500 ML IV ONE (22:35)
[2024-10-15] VITALS (23 sets, daily range): BP systolic 106–141; BP diastolic 32–99; PULSE 74–90; RESP 22–39; TEMP 98.2–98.6; O2SAT 96–100
[2024-10-15] MEDS ORDERED: SODIUM CHLORIDE 0.9% 250 ML IV ONE (06:13)
[2024-10-15 06:40] LABS: ALBUMIN 1.8 g/dL (3.4-5.0); BILIRUBIN,TOTAL 1.3 mg/dL (0.1-1.0); CALCIUM, TOTAL 8.6 mg/dL (8.8-10.5); CREATININE 2.78 mg/dL (0.60-1.30); POTASSIUM 3.7 mmol/L (3.5-5.1); TOTAL PROTEIN, SERUM 5.2 g/dL (6.4-8.2)
[2024-10-15 07:59] LABS: MAGNESIUM 1.8 mg/dL (1.80-2.40)
[2024-10-15] MEDS: LORazepam 2 MG/ML VIAL IVP PRN (08:52)
[2024-10-15 10:15] LABS: BASOPHILS % (AUTO) 0.7 % (0.0-2.0); EOSINOPHILS % (AUTO) 0.1 % (1.0-6.0); HEMATOCRIT 30.7 % (36-46); HEMOGLOBIN 9.9 g/dL (12.0-16.0); LYMPHOCYTES # (AUTO) 0.7 K/uL (1.0-4.8); LYMPHOCYTES % (AUTO) 3.2 % (22.0-44.0); MEAN CORPUSCULAR HEMOGLOBIN 29.7 pg (26.0-34.0); MEAN CORPUSCULAR HGB CONC 32.4 G/dL (31.0-37.0); MEAN CORPUSCULAR VOLUME 92 fL (80-100); MONOCYTES # (AUTO) 0.8 K/uL (0.1-1.0); MONOCYTES % (AUTO) 3.6 % (2.0-9.0); NEUTROPHILS # (AUTO) 20.7 K/uL (1.8-7.7); PLATELET COUNT (AUTO) 29 K/uL (150-450); RED BLOOD CELL COUNT(AUTO) 3.35 MIL/uL (4.00-5.20); RED CELL DISTRIBUTION WIDTH 16.8 % (11.5-14.5); WHITE BLOOD COUNT (AUTO) 22.4 K/uL (4.5-11.0)
[2024-10-15 10:16] LABS: NEUTROPHILS % (AUTO) 92.4 % (40.0-70.0)
[2024-10-15] MEDS: SODIUM CITRATE 4% CATH FLUSH 5 ML SYRINGE IVCATH ONE ×2 (10:30)
[2024-10-15] MEDS: VANCOMYCIN 500 MG/WATER(PEG) 100 ML IV ONE (13:41)
[2024-10-16] VITALS (23 sets, daily range): BP systolic 101–149; BP diastolic 31–49; PULSE 75–90; RESP 21–40; TEMP 97.2–99.3; O2SAT 91–100
[2024-10-16 06:08] LABS: BASOPHILS % (AUTO) 0.2 % (0.0-2.0); EOSINOPHILS % (AUTO) 0.1 % (1.0-6.0); HEMOGLOBIN 8.7 g/dL (12.0-16.0); LYMPHOCYTES # (AUTO) 1.2 K/uL (1.0-4.8); LYMPHOCYTES % (AUTO) 5.6 % (22.0-44.0); MEAN CORPUSCULAR HEMOGLOBIN 30.5 pg (26.0-34.0); MEAN CORPUSCULAR HGB CONC 33.5 G/dL (31.0-37.0); MEAN CORPUSCULAR VOLUME 91 fL (80-100); MONOCYTES # (AUTO) 0.8 K/uL (0.1-1.0); MONOCYTES % (AUTO) 3.7 % (2.0-9.0); NEUTROPHILS # (AUTO) 19.1 K/uL (1.8-7.7); PLATELET COUNT (AUTO) 31 K/uL (150-450); RED BLOOD CELL COUNT(AUTO) 2.85 MIL/uL (4.00-5.20); RED CELL DISTRIBUTION WIDTH 16.7 % (11.5-14.5)
[2024-10-16 06:12] LABS: NEUTROPHILS % (AUTO) 90.4 % (40.0-70.0)
[2024-10-16 06:13] LABS: WHITE BLOOD COUNT (AUTO) 22.3 K/uL (4.5-11.0)
[2024-10-16 06:32] LABS: BILIRUBIN,TOTAL 1.3 mg/dL (0.1-1.0); CALCIUM, TOTAL 8.9 mg/dL (8.8-10.5); CREATININE 2.68 mg/dL (0.60-1.30); POTASSIUM 3.6 mmol/L (3.5-5.1); TOTAL PROTEIN, SERUM 5.4 g/dL (6.4-8.2)
[2024-10-17] VITALS (27 sets, daily range): BP systolic 85–134; BP diastolic 35–48; PULSE 87–103; RESP 18–42; TEMP 98.5–99.7; O2SAT 82–100
[2024-10-17] MEDS ORDERED: SODIUM CHLORIDE 0.9% 250 ML IV ONE (06:12)
[2024-10-17 06:29] LABS: BASOPHILS % (AUTO) 0.6 % (0.0-2.0); EOSINOPHILS % (AUTO) 0.3 % (1.0-6.0); HEMATOCRIT 24.8 % (36-46); HEMOGLOBIN 8.4 g/dL (12.0-16.0); LYMPHOCYTES # (AUTO) 1.1 K/uL (1.0-4.8); LYMPHOCYTES % (AUTO) 5.2 % (22.0-44.0); MEAN CORPUSCULAR HEMOGLOBIN 30.8 pg (26.0-34.0); MEAN CORPUSCULAR HGB CONC 33.9 G/dL (31.0-37.0); MEAN CORPUSCULAR VOLUME 91 fL (80-100); MONOCYTES # (AUTO) 0.7 K/uL (0.1-1.0); MONOCYTES % (AUTO) 3.2 % (2.0-9.0); NEUTROPHILS # (AUTO) 19.6 K/uL (1.8-7.7); PLATELET COUNT (AUTO) 38 K/uL (150-450); RED BLOOD CELL COUNT(AUTO) 2.72 MIL/uL (4.00-5.20); RED CELL DISTRIBUTION WIDTH 16.6 % (11.5-14.5); WHITE BLOOD COUNT (AUTO) 21.6 K/uL (4.5-11.0)
[2024-10-17 06:46] LABS: NEUTROPHILS % (AUTO) 90.7 % (40.0-70.0)
[2024-10-17 06:55] LABS: ALBUMIN 1.7 g/dL (3.4-5.0); BILIRUBIN,TOTAL 1.4 mg/dL (0.1-1.0); CALCIUM, TOTAL 8.5 mg/dL (8.8-10.5); CREATININE 2.92 mg/dL (0.60-1.30); POTASSIUM 3.6 mmol/L (3.5-5.1); TOTAL PROTEIN, SERUM 4.9 g/dL (6.4-8.2); VANCOMYCIN,RANDOM 24.9 mcg/mL (25.0-50.0)
[2024-10-17] MEDS ORDERED: SODIUM CHLORIDE 0.9% 2,000 ML ONE ×2 (10:00→12:42)
[2024-10-17] MEDS: SODIUM CITRATE 4% CATH FLUSH 5 ML SYRINGE IVCATH ONE ×2 (14:50)
[2024-10-17] MEDS: ALTEPLASE 2 MG VIAL/STERILE WATER IVCATH ONE ×2 (15:14→15:15)
[2024-10-17] MEDS ORDERED: ALBUMIN HUMAN 25%-12.5GM/50ML IV BOTTLE IV ONE (16:21)
[2024-10-18] VITALS (15 sets, daily range): BP systolic 102–155; BP diastolic 38–51; PULSE 82–102; RESP 26–36; TEMP 99.3–100.4; O2SAT 97–100
[2024-10-18 06:21] LABS: BASOPHILS % (AUTO) 0.2 % (0.0-2.0); EOSINOPHILS % (AUTO) 0 % (1.0-6.0); HEMATOCRIT 24.1 % (36-46); LYMPHOCYTES # (AUTO) 0.5 K/uL (1.0-4.8); LYMPHOCYTES % (AUTO) 2.4 % (22.0-44.0); MEAN CORPUSCULAR HEMOGLOBIN 30.2 pg (26.0-34.0); MEAN CORPUSCULAR HGB CONC 33.1 G/dL (31.0-37.0); MEAN CORPUSCULAR VOLUME 91 fL (80-100); MONOCYTES # (AUTO) 1.1 K/uL (0.1-1.0); MONOCYTES % (AUTO) 5.3 % (2.0-9.0); NEUTROPHILS # (AUTO) 19.5 K/uL (1.8-7.7); PLATELET COUNT (AUTO) 50 K/uL (150-450); RED BLOOD CELL COUNT(AUTO) 2.64 MIL/uL (4.00-5.20); RED CELL DISTRIBUTION WIDTH 16.8 % (11.5-14.5); WHITE BLOOD COUNT (AUTO) 21.2 K/uL (4.5-11.0)
[2024-10-18 06:33] LABS: NEUTROPHILS % (AUTO) 92.1 % (40.0-70.0)
[2024-10-18 08:11] LABS: ALBUMIN 1.6 g/dL (3.4-5.0); BILIRUBIN,TOTAL 1.6 mg/dL (0.1-1.0); CALCIUM, TOTAL 8.6 mg/dL (8.8-10.5); CREATININE 2.35 mg/dL (0.60-1.30); POTASSIUM 3.4 mmol/L (3.5-5.1); TOTAL PROTEIN, SERUM 5.1 g/dL (6.4-8.2)
[2024-10-18] MEDS ORDERED: SODIUM CHLORIDE 0.9% 250 ML IV ONE (13:05)
[2024-10-18 14:38] LABS: ABG A-A DIFF O2 130.2 mmHg (10-20.0); ABG BASE EXCESS -4.1 mmol/L (-2.0-3.0); ABG CARBOXYHEMOGLOBIN 0.3 % (0.5-1.5); ABG HCO3 21.4 mmol/L (21.0-28.0); ABG METHEMOGLOBIN 0.3 % (0.0-1.5); ABG OXYGEN CONTENT 11.4 mL/dL (15.0-23.0); ABG OXYGEN SATURATION 99.2 % (94.0-98.0); ABG OXYHEMOGLOBIN 98.6 % (94.0-98.0); ABG PCO2 34 mmHg (32.0-45.0); ABG PH 7.404 (7.350-7.450); ABG TOTAL HEMOGLOBIN 7.9 G/dL (12.0-16.0); ALLEN TEST, BLOOD GAS Positive; O2 DEVICE,BLOOD GAS VENTILATOR (ROOM AIR); PO2, ARTERIAL BG 187.8 mmHg (83.0-108.0); SITE, BLOOD GAS ARTERIAL LINE; SOURCE, BLOOD GAS ARTERIAL; TEMPERATURE, FAHRENHEIT, BG 99.4 FAHREN (96.0-98.6)
[2024-10-18 14:39] LABS: PEEP,BG 5 cm H2O; VT, ABG 350 ml
[2024-10-18] MEDS: VANCOMYCIN 500 MG/WATER(PEG) 100 ML IV ONE (16:10)
[2024-10-18] MEDS: METOPROLOL TARTRATE 25 MG TABLET NG SCH (20:43)
[2024-10-19] VITALS (13 sets, daily range): BP systolic 108–160; BP diastolic 33–45; PULSE 82–93; RESP 25–33; TEMP 99.5–100.6; O2SAT 93–100
[2024-10-19] MEDS ORDERED: SODIUM CHLORIDE 0.9% 500 ML IV ONE (03:04)
[2024-10-19 06:28] LABS: BASOPHILS % (AUTO) 0.3 % (0.0-2.0); EOSINOPHILS % (AUTO) 0.1 % (1.0-6.0); HEMATOCRIT 23.3 % (36-46); HEMOGLOBIN 7.6 g/dL (12.0-16.0); LYMPHOCYTES # (AUTO) 0.5 K/uL (1.0-4.8); LYMPHOCYTES % (AUTO) 2.4 % (22.0-44.0); MEAN CORPUSCULAR HEMOGLOBIN 29.9 pg (26.0-34.0); MEAN CORPUSCULAR HGB CONC 32.6 G/dL (31.0-37.0); MEAN CORPUSCULAR VOLUME 92 fL (80-100); NEUTROPHILS # (AUTO) 18.6 K/uL (1.8-7.7); PLATELET COUNT (AUTO) 61 K/uL (150-450); RED BLOOD CELL COUNT(AUTO) 2.55 MIL/uL (4.00-5.20); RED CELL DISTRIBUTION WIDTH 17.3 % (11.5-14.5); WHITE BLOOD COUNT (AUTO) 20.1 K/uL (4.5-11.0)
[2024-10-19 06:44] LABS: NEUTROPHILS % (AUTO) 92.2 % (40.0-70.0)
[2024-10-19 07:57] LABS: ALBUMIN 1.4 g/dL (3.4-5.0); BILIRUBIN,TOTAL 1.5 mg/dL (0.1-1.0); CALCIUM, TOTAL 8.4 mg/dL (8.8-10.5); CREATININE 2.88 mg/dL (0.60-1.30); POTASSIUM 3.3 mmol/L (3.5-5.1); TOTAL PROTEIN, SERUM 4.8 g/dL (6.4-8.2)
[2024-10-19] MEDS ORDERED: SODIUM CHLORIDE 0.9% 250 ML IV ONE (17:28)
[2024-10-20] VITALS (20 sets, daily range): BP systolic 108–199; BP diastolic 40–57; PULSE 75–105; RESP 20–41; TEMP 99–101.1; O2SAT 94–100
[2024-10-20] MEDS ORDERED: SODIUM CHLORIDE 0.9% 500 ML IV ONE (02:21)
[2024-10-20] MEDS ORDERED: SODIUM CHLORIDE 0.9% 250 ML IV ONE (02:26)
[2024-10-20 06:18] LABS: BASOPHILS % (AUTO) 0.6 % (0.0-2.0); EOSINOPHILS % (AUTO) 0.1 % (1.0-6.0); HEMATOCRIT 24.9 % (36-46); HEMOGLOBIN 8.3 g/dL (12.0-16.0); LYMPHOCYTES # (AUTO) 0.5 K/uL (1.0-4.8); LYMPHOCYTES % (AUTO) 2.1 % (22.0-44.0); MEAN CORPUSCULAR HEMOGLOBIN 30.4 pg (26.0-34.0); MEAN CORPUSCULAR HGB CONC 33.4 G/dL (31.0-37.0); MEAN CORPUSCULAR VOLUME 91 fL (80-100); MONOCYTES # (AUTO) 1.3 K/uL (0.1-1.0); MONOCYTES % (AUTO) 5.9 % (2.0-9.0); NEUTROPHILS # (AUTO) 19.5 K/uL (1.8-7.7); PLATELET COUNT (AUTO) 85 K/uL (150-450); RED BLOOD CELL COUNT(AUTO) 2.74 MIL/uL (4.00-5.20); RED CELL DISTRIBUTION WIDTH 16.8 % (11.5-14.5); WHITE BLOOD COUNT (AUTO) 21.3 K/uL (4.5-11.0)
[2024-10-20 06:21] LABS: NEUTROPHILS % (AUTO) 91.3 % (40.0-70.0)
[2024-10-20 06:28] LABS: ALBUMIN 1.5 g/dL (3.4-5.0); BILIRUBIN,TOTAL 1.8 mg/dL (0.1-1.0); CALCIUM, TOTAL 8.4 mg/dL (8.8-10.5); CREATININE 3.17 mg/dL (0.60-1.30); POTASSIUM 3.3 mmol/L (3.5-5.1); TOTAL PROTEIN, SERUM 5.3 g/dL (6.4-8.2); VANCOMYCIN,RANDOM 24.1 mcg/mL (25.0-50.0)
[2024-10-20] MEDS: EPOETIN ALFA 10,000 UNITS/ML VIAL SQ SCH (09:38)
[2024-10-20] MEDS: ALTEPLASE 2 MG VIAL/STERILE WATER IVCATH ONE (12:15)
[2024-10-20] MEDS ORDERED: SODIUM CHLORIDE 0.9% 1,000 ML ONE (12:52)
[2024-10-20] MEDS ORDERED: FentaNYL CITRATE PF 100 MCG/2 ML VIAL ONE (20:11)
[2024-10-20] MEDS: FentaNYL CIT 1000MCG/0.9% NACL 100 ML IV PRN (20:39)
[2024-10-21] VITALS (15 sets, daily range): BP systolic 95–135; BP diastolic 37–42; PULSE 69–92; RESP 18–36; TEMP 97–98.7; O2SAT 91–100
[2024-10-21 06:34] LABS: HEMATOCRIT 22.8 % (36-46); HEMOGLOBIN 7.7 g/dL (12.0-16.0); MEAN CORPUSCULAR HEMOGLOBIN 30.4 pg (26.0-34.0); MEAN CORPUSCULAR HGB CONC 33.6 G/dL (31.0-37.0); MEAN CORPUSCULAR VOLUME 91 fL (80-100); PLATELET COUNT (AUTO) 96 K/uL (150-450); RED BLOOD CELL COUNT(AUTO) 2.52 MIL/uL (4.00-5.20); RED CELL DISTRIBUTION WIDTH 16.9 % (11.5-14.5); WHITE BLOOD COUNT (AUTO) 18.5 K/uL (4.5-11.0)
[2024-10-21 06:49] LABS: ALBUMIN 1.4 g/dL (3.4-5.0); BILIRUBIN,TOTAL 1.4 mg/dL (0.1-1.0); CREATININE 1.95 mg/dL (0.60-1.30); MAGNESIUM 1.9 mg/dL (1.80-2.40); PHOSPHORUS 2.9 mg/dL (2.5-4.9); POTASSIUM 3.3 mmol/L (3.5-5.1)
[2024-10-21 08:33] LABS: BAND NEUTROPHILS % (MANUAL) 3 % (0-5); LYMPHOCYTES % (MANUAL) 6 % (22-44); MONOCYTES % (MANUAL) 9 % (2-9); RBC MORPHOLOGY COMMENT ABNORMAL RBC MORPH; SEGMENTED NEUTROPHILS % 82 % (40-70); TOTAL CELLS COUNTED 100
[2024-10-21] MEDS: ROCURONIUM BROMIDE 10 MG/ML 5 ML VIAL IVP ONE (10:08)
[2024-10-21] MEDS: VANCOMYCIN 500 MG/WATER(PEG) 100 ML IV ONE (15:48)
[2024-10-22] VITALS (25 sets, daily range): BP systolic 86–131; BP diastolic 34–46; PULSE 70–103; RESP 20–30; TEMP 96.9–98.8; O2SAT 94–100
[2024-10-22] MEDS ORDERED: SODIUM CHLORIDE 0.9% 250 ML IV ONE (04:27)
[2024-10-22 05:18] LABS: C.DIFF GDH ANTIGEN, Stool Negative (Negative)
[2024-10-22 05:19] LABS: C.DIFF TOXINS A&B, Stool Negative (Negative)
[2024-10-22 06:04] LABS: BASOPHILS % (AUTO) 0.6 % (0.0-2.0); EOSINOPHILS % (AUTO) 0.1 % (1.0-6.0); HEMATOCRIT 23.3 % (36-46); HEMOGLOBIN 7.5 g/dL (12.0-16.0); LYMPHOCYTES # (AUTO) 1.2 K/uL (1.0-4.8); LYMPHOCYTES % (AUTO) 6.4 % (22.0-44.0); MEAN CORPUSCULAR HEMOGLOBIN 29.4 pg (26.0-34.0); MEAN CORPUSCULAR HGB CONC 32.1 G/dL (31.0-37.0); MEAN CORPUSCULAR VOLUME 92 fL (80-100); MONOCYTES # (AUTO) 1.3 K/uL (0.1-1.0); MONOCYTES % (AUTO) 6.9 % (2.0-9.0); PLATELET COUNT (AUTO) 109 K/uL (150-450); RED BLOOD CELL COUNT(AUTO) 2.55 MIL/uL (4.00-5.20); RED CELL DISTRIBUTION WIDTH 17.5 % (11.5-14.5); WHITE BLOOD COUNT (AUTO) 18.6 K/uL (4.5-11.0)
[2024-10-22 06:13] LABS: CALCIUM, TOTAL 8.2 mg/dL (8.8-10.5); CREATININE 2.42 mg/dL (0.60-1.30); POTASSIUM 3.9 mmol/L (3.5-5.1)
[2024-10-22 06:55] LABS: PLATELET MORPHOLOGY COMMENT LARGE PLTS PRESENT
[2024-10-22] MEDS ORDERED: SODIUM CHLORIDE 0.9% 500 ML IV ONE (08:50)
[2024-10-22] MEDS ORDERED: SODIUM CHLORIDE 0.9% 2,000 ML ONE (11:52)
[2024-10-22] MEDS ORDERED: ALBUMIN HUMAN 25%-12.5GM/50ML IV BOTTLE IV ONE (12:00)
[2024-10-22] MEDS ORDERED: HEPARIN SODIUM,PORCINE 1,000 UNITS/ML VIAL IVP ONE (12:00)
[2024-10-22] MEDS ORDERED: MANNITOL 25%-12.5 GM/50 ML VIAL IVP ONE (12:00)
[2024-10-22] MEDS ORDERED: DiphenhydrAMINE HCL 50 MG/ML VIAL IVP ONE (12:00)
[2024-10-23] VITALS (13 sets, daily range): BP systolic 100–178; BP diastolic 38–63; PULSE 76–98; RESP 2–28; TEMP 99.3–100.2; O2SAT 95–100
[2024-10-23 06:12] LABS: BASOPHILS % (AUTO) 0.2 % (0.0-2.0); EOSINOPHILS % (AUTO) 0 % (1.0-6.0); HEMATOCRIT 22.6 % (36-46); HEMOGLOBIN 7.2 g/dL (12.0-16.0); LYMPHOCYTES # (AUTO) 0.8 K/uL (1.0-4.8); LYMPHOCYTES % (AUTO) 5.1 % (22.0-44.0); MEAN CORPUSCULAR HEMOGLOBIN 29.3 pg (26.0-34.0); MEAN CORPUSCULAR HGB CONC 31.8 G/dL (31.0-37.0); MEAN CORPUSCULAR VOLUME 92 fL (80-100); MONOCYTES # (AUTO) 0.8 K/uL (0.1-1.0); MONOCYTES % (AUTO) 4.9 % (2.0-9.0); NEUTROPHILS # (AUTO) 14.3 K/uL (1.8-7.7); PLATELET COUNT (AUTO) 120 K/uL (150-450); RED BLOOD CELL COUNT(AUTO) 2.45 MIL/uL (4.00-5.20)
[2024-10-23 06:13] LABS: NEUTROPHILS % (AUTO) 89.8 % (40.0-70.0)
[2024-10-23 06:18] LABS: CALCIUM, TOTAL 7.8 mg/dL (8.8-10.5); CREATININE 1.74 mg/dL (0.60-1.30); POTASSIUM 3.2 mmol/L (3.5-5.1)
[2024-10-23 06:33] LABS: PLATELET MORPHOLOGY COMMENT LARGE PLTS PRESENT
== END 2024-10-23 19:05 | DRG 4 ==
LOC: EMS 14:59 → EDH 17:06 → ICU 20:30 → 5S 09-26 08:13 → ICU 10-02 10:00
PROVIDERS: ADMIT Internal Medicine; ATTEND Internal Medicine
PROC: 0W9B3ZZ Drainage of Left Pleural Cavity, Percutaneous Approach (ICD-10-PCS; principal; 2024-09-24)
PROC: 0BH17EZ Insertion of Endotracheal Airway into Trachea, Via Natural or Artificial Opening (ICD-10-PCS; 2024-10-02)
PROC: 5A1955Z Respiratory Ventilation, Greater than 96 Consecutive Hours (ICD-10-PCS; 2024-10-02)
PROC: 06HY33Z Insertion of Infusion Device into Lower Vein, Percutaneous Approach (ICD-10-PCS; 2024-10-02)
PROC: B54BZZA Ultrasonography of Right Lower Extremity Veins, Guidance (ICD-10-PCS; 2024-10-02)
PROC: 5A09357 Assistance with Respiratory Ventilation, Less than 24 Consecutive Hours, Continuous Positive Airway Pressure (ICD-10-PCS; 2024-10-02)
PROC: 0W9B30Z Drainage of Left Pleural Cavity with Drainage Device, Percutaneous Approach (ICD-10-PCS; 2024-10-07)
PROC: 30233N1 Transfusion of Nonautologous Red Blood Cells into Peripheral Vein, Percutaneous Approach (ICD-10-PCS; 2024-10-10)
PROC: 06HY33Z Insertion of Infusion Device into Lower Vein, Percutaneous Approach (ICD-10-PCS; 2024-10-10)
PROC: B54CZZA Ultrasonography of Left Lower Extremity Veins, Guidance (ICD-10-PCS; 2024-10-10)
PROC: 5A1D70Z Performance of Urinary Filtration, Intermittent, Less than 6 Hours Per Day (ICD-10-PCS; 2024-10-10)
PROC: 5A1D70Z Performance of Urinary Filtration, Intermittent, Less than 6 Hours Per Day (ICD-10-PCS; 2024-10-11)
PROC: 5A1D70Z Performance of Urinary Filtration, Intermittent, Less than 6 Hours Per Day (ICD-10-PCS; 2024-10-13)
PROC: 5A1D70Z Performance of Urinary Filtration, Intermittent, Less than 6 Hours Per Day (ICD-10-PCS; 2024-10-15)
PROC: 5A1D70Z Performance of Urinary Filtration, Intermittent, Less than 6 Hours Per Day (ICD-10-PCS; 2024-10-17)
PROC: 02HV33Z Insertion of Infusion Device into Superior Vena Cava, Percutaneous Approach (ICD-10-PCS; 2024-10-20)
PROC: B548ZZA Ultrasonography of Superior Vena Cava, Guidance (ICD-10-PCS; 2024-10-20)
PROC: 5A1D70Z Performance of Urinary Filtration, Intermittent, Less than 6 Hours Per Day (ICD-10-PCS; 2024-10-20)
PROC: 0B113F4 Bypass Trachea to Cutaneous with Tracheostomy Device, Percutaneous Approach (ICD-10-PCS; 2024-10-21)
PROC: 0B9D8ZX Drainage of Right Middle Lung Lobe, Via Natural or Artificial Opening Endoscopic, Diagnostic (ICD-10-PCS; 2024-10-21)
PROC: 5A1D70Z Performance of Urinary Filtration, Intermittent, Less than 6 Hours Per Day (ICD-10-PCS; 2024-10-22)
DX: A41.53 Sepsis due to Serratia (principal); N17.0 Acute kidney failure with tubular necrosis; J15.69 Pneumonia due to other Gram-negative bacteria; J96.01 Acute respiratory failure with hypoxia; R40.20 Unspecified coma; G93.41 Metabolic encephalopathy; I50.43 Acute on chronic combined systolic (congestive) and diastolic (congestive) heart failure; R65.21 Severe sepsis with septic shock; D68.9 Coagulation defect, unspecified; I82.611 Acute embolism and thrombosis of superficial veins of right upper extremity; E87.0 Hyperosmolality and hypernatremia; A04.72 Enterocolitis due to Clostridium difficile, not specified as recurrent; I13.0 Hypertensive heart and chronic kidney disease with heart failure and stage 1 through stage 4 chronic kidney disease, or unspecified chronic kidney disease; J91.0 Malignant pleural effusion; J98.11 Atelectasis; E87.4 Mixed disorder of acid-base balance; C78.7 Secondary malignant neoplasm of liver and intrahepatic bile duct; C78.02 Secondary malignant neoplasm of left lung; C78.01 Secondary malignant neoplasm of right lung; I70.263 Atherosclerosis of native arteries of extremities with gangrene, bilateral legs; Z99.11 Dependence on respirator [ventilator] status; E87.20 Acidosis, unspecified; J44.0 Chronic obstructive pulmonary disease with (acute) lower respiratory infection; D68.59 Other primary thrombophilia; E87.1 Hypo-osmolality and hyponatremia; Z66 Do not resuscitate; E78.00 Pure hypercholesterolemia, unspecified; C50.912 Malignant neoplasm of unspecified site of left female breast; Z20.822 Contact with and (suspected) exposure to COVID-19; J98.4 Other disorders of lung; D50.0 Iron deficiency anemia secondary to blood loss (chronic); N18.9 Chronic kidney disease, unspecified; I48.0 Paroxysmal atrial fibrillation; K74.60 Unspecified cirrhosis of liver; E87.6 Hypokalemia; D63.8 Anemia in other chronic diseases classified elsewhere; D69.6 Thrombocytopenia, unspecified; K59.00 Constipation, unspecified; N20.0 Calculus of kidney; Z79.899 Other long term (current) drug therapy; Z88.0 Allergy status to penicillin; Z88.6 Allergy status to analgesic agent; Z92.21 Personal history of antineoplastic chemotherapy; Z92.3 Personal history of irradiation
CPT/HCPCS: 31624; 32555; 36245; 36600; 70450; 71045; 71250; 72192; 74018; 74150; 76942; 80048; 80053; 80076; 80162; 80202; 81001; 81002; 81003; 82040; 82140; 82271; 82465; 82570; 82805; 82945; 82962; 83605; 83615; 83735; 83880; 83986; 84100; 84132; 84145; 84157; 84300; 84443; 84484; 84540; 85025; 85610; 85730; 86850; 86900; 86901; 86923; 87015; 87040; 87070; 87075; 87081; 87086; 87101; 87186; 87205; 87206; 87220; 87324; 87340; 87449; 87481; 87493; 87804; 88108; 88305; 88313; 88341; 88342; 89051; 90935; 92610; 93005; 93306; 93925; 93930; 93970; 93971; 94002; 94003; 94640; 94660; 97163; 97167; 97530; 97535; 99285; C8924; G0238; J0282; J0456; J0610; J0692; J0696; J0885; J1160; J1200; J1644; J2060; J2150; J2185; J2250; J2270; J2370; J2405; J2470; J2704; J2765; J2997; J3010; J3475; J3480; J3490; J7030; J7040; J7050; J7060; P9016; P9046; P9047; 36415-L1; 36415-TC; J7613